=== PATIENT | male | born 1930 | race Caucasian/White ===

== ENCOUNTER 2017-01-11 12:37 | Observation (INO) ==
[2017-01-11] MEDS ORDERED: *HR* HYDROmorphone (PF) 1 MG/ML SYRINGE IM ONE (12:42)
--- NOTE | 2017-01-11 12:46 | Emergency Department Note ---
START Narrative - START START: I examined this patient and my medical decision-making was reviewed with the PUBLIC HEALTH ADVISOR/PA/Advanced Practice Nurse/Resident Physician. I agree with the documented findings, disposition and treatment plan as described except to the extent set forth below. ED attending: Patient's emergency medicine resident Dr. Mcgarry. Please see copy of this note for H&P evaluation and management and ED disposition. We both had independent [id number] time contact with this patient. Briefly: A 86-year-old male right-hand dominant mechanical fall onto right shoulder with pain but no external deformity. Neurovascularly intact. X-rays pending. Disposition pending.
--- NOTE | 2017-01-11 13:28 | Emergency Department Note ---
Disposition Clinical Impression: Dizziness Shoulder injury Qualifiers: Encounter type: initial encounter Laterality: right Qualified Code(s): S49.91XA - Unspecified injury of right shoulder and upper arm, initial encounter Syncope Qualifiers: Syncope type: unspecified Qualified Code(s): R55 - Syncope and collapse Disposition: Admitted As Inpatient Condition: Good Reasons to Return/Additional Instructions: As we discussed, please follow up with your primary care physician at the next available appointment. Return to the emergency department immediately for any new, worsening, or persistent symptoms or any other concern you may have. Please call the orthopedic office upon discharge to set up your follow-up appointment Forms: ED Satisfaction Letter Time of Disposition: 15:37 Fall HPI - General Chief Complaint: ED Fall Stated Complaint: Fall, right shoulder injury Time Seen by Provider: 01/11/17 12:40 Source: patient, family, EMS Mode of arrival: EMS Limitations: no limitations Nursing Notes Reviewed: Yes Vital Signs Reviewed: Yes - History of Present Illness HPI Narrative: Patient presenting to the ED via EMS after a fall with a right shoulder injury. EMS reports the patient has had issues with falling recently, unknown if he had any syncopal episodes. Only complaining of right shoulder pain. No other injuries - Related Data Home Medications Medication Instructions Recorded Confirmed Aspirin 81 mg PO DAILY 06/09/16 01/11/17 Famotidine [Pepcid] 40 mg PO HS 06/09/16 01/11/17 Fenofibrate Nanocrystallized 145 mg PO DAILY 06/09/16 01/11/17 [Tricor] Furosemide [Lasix] 20 mg PO DAILY 06/09/16 01/11/17 Metoprolol [Lopressor] 12.5 mg PO BID 06/09/16 01/11/17 Omeprazole [PriLOSEC] 40 mg PO DAILY 06/09/16 01/11/17 Potassium Chloride [K-Tab ER] 20 meq PO DAILY 06/09/16 01/11/17 Simvastatin [Zocor] 20 mg PO HS 06/09/16 01/11/17 Cetirizine HCl [Zyrtec] 10 mg PO DAILY 01/11/17 01/11/17 Sertraline [Zoloft] 50 mg PO DAILY 01/11/17 01/11/17 Allergies Allergy/AdvReac Type Severity Reaction Status Date / Time No Known Allergies Allergy Verified 01/11/17 13:06 All systems ED: reviewed and negative except as stated. Constitutional: Denies: fever Cardiovascular: Denies: palpitations Gastrointestinal: Denies: abdominal pain Musculoskeletal: Reports: as per HPI Neurological: Denies: headache Fall PMH - Past Medical History Medical history: Reports: arthritis, cardiomyopathy, coronary artery disease, hyperlipidemia, myocardial infarction Surgical history: Reports: coronary bypass (CABG), orthopedic, other Psychiatric history: Reports: no psych history - Social History Smoking Status: Current every day smoker Alcohol use: Reports: occasionally Drug use: Reports: none Physical Exam - General Limitations: no limitations General appearance: alert, in no apparent distress - Head Head exam: atraumatic, normocephalic, normal inspection - Eye Eye exam: Present: normal appearance, PERRL, EOMI - ENT ENT exam: normal exam, normal oropharynx, mucous membranes moist - Neck Neck exam: Present: normal inspection, full ROM, trachea midline - Chest Chest inspection: Present: normal inspection, symmetric chest wall rise - Respiratory Respiratory exam: Present: normal lung sounds bilaterally - Cardiovascular Cardiovascular exam: Present: regular rate, normal rhythm, normal heart sounds - Abdominal Exam Abdominal exam: Present: soft, Non-Tender. Absent: tenderness, distention, guarding, rebound, rigidity - Extremities Exam Extremities exam: Present: other (Right AC joint pain and distal clavicular pain , decreased range of motion secondary to pain of the shoulder, normal neurovascular exam distally, normal range of motion of elbow and wrist. Normal obstetrics gynecology md strength. No scapular C-spine, thoracic or chest wall tenderness) Course Course Narrative: A 6-year-old male presenting with right shoulder pain. EMS describes a mechanical fall. Patient in no acute distress. We will get an x-ray and likely discharge - Reevaluation(s) Reevaluation #1: After discussion with the patient. There is no identifiable fracture. Could be related to adhesive capsulitis. Patient's daughter is now present and states that these falls actually have been related to syncope and not mechanical falls. He has been getting dizzy and falling much more frequently than usual. He has never had a formal workup for his dizziness, although EMS had reported previously that he did. He has never had a carotid ultrasound and has not had a recent echocardiogram. Patient does live at home alone and daughter is over an hour away. She is concerned that he will fall and injure himself and is unable to take care of himself fully. Therefore, we will check some basic labs and a chest x-ray, EKG , CT of his head and admit for further syncope and dizziness workup. No acute neurological deficits Time: 13:40 Reevaluation #2: Sinus bradycardia, rate 56, ND interval 165, QRS 95, QTC 395, left axis deviation, no acute ischemic changes Time: 14:42 - Consultations Consultation #1: admitted to the hospitalist Dr. Borges Time: 15:38 Vital Signs Temperature 99.1 F 01/11/17 13:01 Pulse Rate 56 01/11/17 13:01 Respiratory Rate 16 01/11/17 13:01 Blood Pressure 99/59 01/11/17 13:01 O2 Sat by Pulse Oximetry 94 01/11/17 13:01 Temperature 99.1 F 01/11/17 13:01 Pulse Rate 58 01/11/17 14:38 Respiratory Rate 20 01/11/17 14:38 Blood Pressure 114/69 01/11/17 14:38 O2 Sat by Pulse Oximetry 96 01/11/17 14:38 Oxygen Delivery Oxygen Delivery Room Air Fall - Lab Data Result diagrams: 01/11/17 13:58 01/11/17 13:58 Lab Results 01/11/17 01/11/17 01/11/17 Range/Units 13:58 13:58 13:58 WBC 8.9 (4.3-11.1) K/mcL RBC 4.12 L (4.19-5.50) M/mcL Hgb 12.5 L (12.9-16.9) g/dL Hct 37.5 (37.5-50.1) % MCV 91.0 (83.0-100.0) fL MCH 30.3 (28.0-33.3) pg MCHC 33.3 (31.6-35.5) g/dL RDW 12.9 (11.5-14.5) % Plt Count 217 (140-400) K/mcL MPV 10.3 (9.4-12.4) fL Immature Gran % 0.3 (0-4) % Seg Neutrophils % 61.7 % Lymphocytes % 24.5 % Monocytes % 9.5 % Eosinophils % 3.4 % Basophils % 0.6 % Neutrophils # 5.5 (1.6-8.9) K/mcL Lymphocytes # 2.2 (0.6-4.6) K/mcL Monocytes # 0.8 (0.0-1.3) K/mcL Eosinophils # 0.3 (0.0-0.6) K/mcL Basophils # 0.1 (0.0-0.2) K/mcL PT 11.3 (9.4-12.1) Seconds INR 1.1 APTT 30.6 (26.0-36.0) Seconds Sodium 139 (136-145) mEq/L Potassium 4.4 (3.5-4.5) mEq/L Chloride 107 (98-109) mEq/L Carbon Dioxide 24 (19-29) mEq/L BUN 27 H (8-26) mg/dL Creatinine 1.41 H (0.72-1.25) mg/dL Est GFR ( Amer) 58 L (> 60) Est GFR (Non-Af Amer) 48 L (> 60) BUN/Creatinine Ratio 19 (6-26) Glucose 94 (70-99) mg/dL Calculated Osmolality 293 (280-300) Calcium 9.9 (8.6-10.8) mg/dL Creatine Kinase 47 (30-200) Units/L Troponin I (0-0.03) ng/mL 01/11/17 Range/Units 13:58 WBC (4.3-11.1) K/mcL RBC (4.19-5.50) M/mcL Hgb (12.9-16.9) g/dL Hct (37.5-50.1) % MCV (83.0-100.0) fL MCH (28.0-33.3) pg MCHC (31.6-35.5) g/dL RDW (11.5-14.5) % Plt Count (140-400) K/mcL MPV (9.4-12.4) fL Immature Gran % (0-4) % Seg Neutrophils % % Lymphocytes % % Monocytes % % Eosinophils % % Basophils % % Neutrophils # (1.6-8.9) K/mcL Lymphocytes # (0.6-4.6) K/mcL Monocytes # (0.0-1.3) K/mcL Eosinophils # (0.0-0.6) K/mcL Basophils # (0.0-0.2) K/mcL PT (9.4-12.1) Seconds INR APTT (26.0-36.0) Seconds Sodium (136-145) mEq/L Potassium (3.5-4.5) mEq/L Chloride (98-109) mEq/L Carbon Dioxide (19-29) mEq/L BUN (8-26) mg/dL Creatinine (0.72-1.25) mg/dL Est GFR ( Amer) (> 60) Est GFR (Non-Af Amer) (> 60) BUN/Creatinine Ratio (6-26) Glucose (70-99) mg/dL Calculated Osmolality (280-300) Calcium (8.6-10.8) mg/dL Creatine Kinase (30-200) Units/L Troponin I 0.02 (0-0.03) ng/mL
[2017-01-11 14:08] LABS: INR 1.1; Prothrombin Time 11.3 Seconds (9.4-12.1)
[2017-01-11 14:11] LABS: Activated Partial Thrombo Time 30.6 Seconds (26.0-36.0); Basophils # 0.1 K/mcL (0.0-0.2); Basophils % 0.6 %; Eosinophils # 0.3 K/mcL (0.0-0.6); Eosinophils % 3.4 %; Hematocrit 37.5 % (37.5-50.1); Hemoglobin 12.5 g/dL (12.9-16.9); Immature Granulocytes % 0.3 % (0-4); Lymphocytes # 2.2 K/mcL (0.6-4.6); Lymphocytes % 24.5 %; Mean Corpuscular HGB Conc 33.3 g/dL (31.6-35.5); Mean Corpuscular Hemoglobin 30.3 pg (28.0-33.3); Mean Platelet Volume 10.3 fL (9.4-12.4); Monocytes # 0.8 K/mcL (0.0-1.3); Monocytes % 9.5 %; Neutrophils # 5.5 K/mcL (1.6-8.9); Platelet Count 217 K/mcL (140-400); Red Blood Count 4.12 M/mcL (4.19-5.50); Red Cell Distribution Width 12.9 % (11.5-14.5); Segmented Neutrophils % 61.7 %
[2017-01-11 14:20] LABS: Calcium 9.9 mg/dL (8.6-10.8); Potassium 4.4 mEq/L (3.5-4.5)
[2017-01-11 15:48] LABS: Bilirubin,Urine Negative (Negative); Blood,Urine Negative (Negative); Clarity,Urine Clear (Clear); Color,Urine Yellow (Yellow); Glucose,Urine (UA) Normal (Normal); Ketones,Urine Negative (Negative); Leukocyte Esterase,Urine Negative (Negative); Nitrite,Urine Negative (Negative); Protein,Urine Negative (Neg-Trace); Specific Gravity,Urine 1.017 (1.010-1.025); Urobilinogen,Urine Normal (Normal)
[2017-01-11] MEDS ORDERED: Naloxone 0.4 MG/ML INJ IVP PRN (16:42)
[2017-01-11] MEDS ORDERED: Acetaminophen 325 MG TABLET PO PRN (16:42)
[2017-01-11] MEDS ORDERED: Ondansetron ODT 4 MG TAB.RAPDIS SL PRN (16:42)
--- NOTE | 2017-01-11 17:00 | Internal Med History&Physical ---
<Soto Bueno - Last Filed: 01/11/17 16:56> Date of Encounter: 01/11/17 Time of Encounter: 16:56 Assessment and Plan (1) Syncope Current visit: Yes Status: Acute 86-year-old male significant cardiovascular history as demonstrated syncopal episodes over the last month with increasing frequency in the last week. - Denies postictal symptoms including biting tongue, loss of control of bowels and bladder, difficulty to arouse. - Symptoms appear to be cardiogenic in nature given the acute onset and recovery. - EKG reviewed which demonstrated sinus bradycardia with left axis deviation Plan: - Carotid duplex Doppler bilateral - TTE - Reviewed medications - Continuous cardiac monitoring - Cardiac enzymes - Orthostatic vitals Qualifiers: Syncope type: unspecified Qualified Code(s): R55 - Syncope and collapse (2) Coronary artery disease Current visit: Yes Status: Acute Significant history of coronary artery disease with previous CABG (5 vessels ) in the - Review of patient's outpatient cardiology notes demonstrates that his last echocardiogram ejection fraction of 50%. - No recent echocardiogram in the past several years. Plan: - Continue simvastatin - Continue fenofibrate Qualifiers: Qualified Code(s): I25.10 - Atherosclerotic heart disease of [place] coronary artery without angina pectoris (3) Hx of CABG Current visit: Yes Status: Acute Known history. (4) Shoulder injury Current visit: Yes Status: Acute Complains of right lateral shoulder pain after a fall this morning. X-ray: Moderate acromioclavicular degenerative changes and mild glenohumeral degenerative changes. No superimposed acute radiographic finding to account for patient's right shoulder pain. Plan: - pain control - Physical therapy. Qualifiers: Encounter type: initial encounter Laterality: right Qualified Code(s): S49.91XA - Unspecified injury of right shoulder and upper arm, initial encounter (5) CKD (chronic kidney disease) stage 3, GFR 30-59 ml/min Current visit: Yes Status: Acute Review of patient's previous lab results demonstrate chronic kidney disease stage III. - Current creatinine and GFR appeared to be around baseline. Plan: - Avoid nephrotoxic medications and renally dose antibiotics - Monitor renal function daily labs (6) DVT prophylaxis Current visit: Yes Status: Acute Lovenox 40mg daily Internal Medicine - H&P: HPI Chief complaint: right shoulder pain Admitted From: Emergency Dept Plans for Post Hospital Care: Home History of present illness: Mr. Kinsey is a 86 year old male presented to the emergency department this evening after falling at home and landing on his right shoulder. He states that he was getting up to use the bathroom at 3 AM this morning he was walking across his bedroom when he started to fall. He does not remember the events around his falling episode but does not remember why he fell and denies feeling like his legs were giving out or feeling weak. He said he may have blacked out but came to prior to hitting the ground and landed on his right shoulder. He states that he is fallen twice in the last week with very similar presentation and his family member who is at bedside states that he has fallen multiple times last month. He has passed out spontaneously while doing activities while at rest or while standing. He denies any feeling of lightheadedness or dizziness prior to falling he just says the lights go out any falls. When he comes to me comes back right away but does feel dizzy and lightheaded for a short period of time after. He denies biting his tongue, hitting his head, losing bowel or bladder function or having abnormal coordination or movements with his extremities. He denies any recent illnesses fevers chills sweating blurry vision shortness of breath, vertigo, chest pain, palpitations, chest pressure, abdominal pains, nausea vomiting diarrhea constipation, weakness in his extremities, blood in his urine and bowels, sputum. He does mention that he follows with his pole setter and recently cut his blood pressure medication in half roughly a month ago because of blood pressure was low. He has a book of medical problems that he has at bedside and shows his blood pressure is systolically around 116. He denies any chest pains or any other concerns. Past Med Surg Social Fam HX - Past Medical History Medical history: arthritis, cardiomyopathy, coronary artery disease, hyperlipidemia, myocardial infarction Psychiatric history: no psych history - Past Surgical History Surgical History: coronary bypass (CABG), orthopedic, other - Social History Smoking Status: Current every day smoker Smokeless Tobacco Status: No Alcohol use: occasionally Drug use: none Internal Medicine - H&P: Meds Aspirin 81 mg PO DAILY 06/09/16 [History] Famotidine [Pepcid] 40 mg PO HS 06/09/16 [History] Fenofibrate Nanocrystallized [Tricor] 145 mg PO DAILY 06/09/16 [History] Furosemide [Lasix] 20 mg PO DAILY 06/09/16 [History] Metoprolol [Lopressor] 12.5 mg PO BID 06/09/16 [History] Omeprazole [PriLOSEC] 40 mg PO DAILY 06/09/16 [History] Potassium Chloride [K-Tab ER] 20 meq PO DAILY 06/09/16 [History] Simvastatin [Zocor] 20 mg PO HS 06/09/16 [History] Cetirizine HCl [Zyrtec] 10 mg PO DAILY 01/11/17 [History] Sertraline [Zoloft] 50 mg PO DAILY 01/11/17 [History] 3 Allergy/AdvReac Type Severity Reaction Status Date / Time No Known Allergies Allergy Verified 01/11/17 13:06 All Systems PM: A 10-system review of systems was performed and is negative for pertinent findings except as documented above in the HPI. - Constitutional Constitutional: no chills, no fever(s), no night sweats - EENT Eyes: no change in vision, no discharge, no pain, no photophobia Ears: no ear discharge, no ear pain, no tinnitus Nose, mouth and throat: no dysphagia, no nasal discharge, no neck pain, no sore throat - Cardiovascular Cardiovascular ROS IM: lightheadedness, no chest pain, no diaphoresis, no dyspnea, no palpitations, no syncope - Respiratory Respiratory: no cough, no dyspnea, no wheezing, no excessive phlegm production - Gastrointestinal Gastrointestinal: no abdominal pain, no diarrhea, no hematemesis, no hematochezia, no melena, no nausea, no vomiting - Musculoskeletal Musculoskeletal ROS IM: no numbness, no tingling - Integumentary Integumentary IM: no rash, no unusual bruising - Neurological Neurological ROS: dizziness, no confusion, no convulsions, no focal weakness, no numbness, no tingling, no tremor(s) Additional comments: Syncope, near syncope - Hematologic/Lymphatic Hematologic/Lymphatic: no easy bruising - Constitutional Vitals: Temp Pulse Resp BP Pulse Ox 99.1 F 58 18 119/74 96 01/11/17 13:01 01/11/17 14:38 01/11/17 16:45 01/11/17 16:45 01/11/17 14:38 Exam: General: Patient alert, awake, oriented 3, interactive, in no acute distress HEENT: Normocephalic, atraumatic, pupils equal reactive to light, nasal cavity patent and open septum median position, oral mucosa moist, uvula midline, neck supple trachea midline no palpable lymphadenopathy, no thyromegaly. Chest: Symmetric bilateral correlating with respiratory effort, effort nonlabored. Cardiac: Regular rate and rhythm, positive S1, S2, no bruits appreciated bilateral carotids, Radial pulses 2+ bilateral, posterior tibial and dorsal pedal pulses 2+ bilateral. Respiratory: Clear to auscultation all lung snider Abdomen: Soft, nontender, positive bowel sounds, no palpable masses appreciated on examination Extremities: Symmetric bilateral, no erythema or edema, tenderness to palpation of the lateral humeral head, patient is moving all other extremities without restriction. Patient is neurovascularly intact. Neurologic: No focal deficits appreciated on examination. Face symmetric, muscle strength symmetric bilateral upper and lower extremities. Internal Med - H&P Results - Labs CBC & Chem 7: 01/11/17 13:58 01/11/17 13:58 <Aide Borges - Last Filed: 01/11/17 18:36> Date of Encounter: 01/11/17 Internal Medicine - H&P: HPI History of present illness: Mr. Kinsey is a 86 year old male All Systems PM: A 10-system review of systems was performed and is negative for pertinent findings except as documented above in the HPI. - Constitutional Vitals: Temp Pulse Resp BP Pulse Ox 97.8 F 61 16 118/72 97 01/11/17 17:55 01/11/17 17:55 01/11/17 17:55 01/11/17 17:55 01/11/17 17:55 Internal Med - H&P Results - Labs CBC & Chem 7: 01/11/17 13:58 01/11/17 13:58 - Attending Attestation Patient independently seen and examined with family present at bedside. Admitted for recurrent syncopal episodes. Pt is reported of living alone. will rule out cardiogenic causes. case discussed with resident physician Dr. Soto Viveros, I agree with his documented findings, assessment, and plan.
[2017-01-11] MEDS ORDERED: *HR* HYDROcodone/Acet 5/325 mg TABLET PO PRN (17:39)
[2017-01-11] MEDS: Famotidine 20 MG TABLET PO SCH (20:20)
[2017-01-12] MEDS: *HR* Enoxaparin 40 MG/0.4 ML SYRINGE SQ SCH (05:35)
[2017-01-12 07:02] LABS: Basophils # 0.1 K/mcL (0.0-0.2); Basophils % 0.8 %; Eosinophils # 0.3 K/mcL (0.0-0.6); Eosinophils % 4.2 %; Hematocrit 38.4 % (37.5-50.1); Hemoglobin 12.8 g/dL (12.9-16.9); Immature Granulocytes % 0.3 % (0-4); Lymphocytes # 2.1 K/mcL (0.6-4.6); Lymphocytes % 29.7 %; Mean Corpuscular HGB Conc 33.3 g/dL (31.6-35.5); Mean Corpuscular Hemoglobin 30.4 pg (28.0-33.3); Mean Corpuscular Volume 91.2 fL (83.0-100.0); Mean Platelet Volume 11.1 fL (9.4-12.4); Monocytes # 0.8 K/mcL (0.0-1.3); Monocytes % 10.9 %; Neutrophils # 3.8 K/mcL (1.6-8.9); Platelet Count 200 K/mcL (140-400); Red Blood Count 4.21 M/mcL (4.19-5.50); Segmented Neutrophils % 54.1 %
[2017-01-12 07:16] LABS: BUN/Creatinine Ratio 19 (6-26); Blood Urea Nitrogen 23 mg/dL (8-26); Calcium 9.9 mg/dL (8.6-10.8); Carbon Dioxide 25 mEq/L (19-29); Chloride 107 mEq/L (98-109); Chol/HDL Ratio 4.3 (0-4.9); Cholesterol 117 mg/dL (< 200); Glucose 92 mg/dL (70-99); HDL Cholesterol 27 mg/dL (40-59); LDL Cholesterol,Calculated 69 mg/dL (0-99); Magnesium 1.9 mg/dL (1.6-2.6); Osmolality,Calculated 293 (280-300); Phosphorous 3.2 mg/dL (2.3-4.7); Potassium 4.1 mEq/L (3.5-4.5); Sodium 140 mEq/L (136-145); Triglycerides 104 mg/dL (< 150); eGFR For African Americans > 60 (> 60); eGFR For Non-African Americans 56 (> 60)
[2017-01-12] MEDS: Fenofibrate 54 MG TABLET PO SCH (08:26)
[2017-01-12] MEDS: Aspirin 81 MG TAB.CHEW PO SCH (08:26)
--- NOTE | 2017-01-12 17:01 | Electrocardiograph Report ---
[place] [id number] Test Date: 2017-01-11 Pat Name: Mundo Kinsey Department: 102 Room: 3B Gender: M Appellate Conferee: PERLA : 1930 Requested By: Natan Mcgarry Order Number: [id number] Reading MD: Marybel Ayoub Measurements Intervals [place] Rate: 56 P: 24 MS: 165 QRS: -9 QRSD: 95 T: 39 QT: 393 QTc: 385 Interpretive Statements SINUS BRADYCARDIA MINIMAL VOLTAGE CRITERIA FOR LVH, CONSIDER NORMAL VARIANT NONSPECIFIC T-WAVE ABNORMALITY Electronically Signed On 01-12-2017 17:00:14 EDT by Marybel Ayoub
--- NOTE | 2017-01-12 19:27 | Internal Med Progress Note ---
Date of Encounter: 01/12/17 Time of Encounter: 14:00 - Assessment and plan (1) Syncope Current Visit: Yes Status: Acute Assessment and plan: Patient reports syncopal episodes at home with fall. Patient is bradycardic throughout visit. Carotids with nonstenotic plaque bilaterally. Echocardiogram with heart rate of 50, LVEF of 50%, mild LVEDD, atypical septal motion consistent with postoperative status, no significant valvular dysfunction. Patient had positive orthostatic vital signs. Patient does not check his blood pressure prior to taking his medications, daughter at bedside suggested this for discharge. I decreased his beta vasu to 6.25 mg by mouth twice a day. We will continue to monitor vital signs and pulse in the morning. Qualifiers: Syncope type: unspecified Qualified Code(s): R55 - Syncope and collapse (2) Shoulder injury Current Visit: Yes Status: Acute Assessment and plan: Patient with right shoulder pain. No obvious deformity. Patient with pain with range of motion. Sling ordered. Physical therapy consult ordered, as well. Qualifiers: Encounter type: initial encounter Laterality: right Qualified Code(s): S49.91XA - Unspecified injury of right shoulder and upper arm, initial encounter (3) Dizziness Current Visit: Yes Status: Acute Assessment and plan: Plan as above (4) Coronary artery disease Current Visit: Yes Status: Chronic Assessment and plan: Patient denies chest pain. Patient had CABG in the . Patient's last echo with ejection fraction of 50%, unchanged today. Continue fenofibrate and simvastatin, as well as beta vasu with reduced dose for bradycardia and hypotension. Qualifiers: Coronary Disease-Associated Artery/Lesion type: [place] artery [place] vs. transplanted heart: [place] heart Associated angina: angina presence unspecified Qualified Code(s): I25.10 - Atherosclerotic heart disease of [place] coronary artery without angina pectoris (5) Hx of CABG Current Visit: Yes Status: Chronic Assessment and plan: Plan as above. (6) DVT prophylaxis Current Visit: Yes Status: Acute Assessment and plan: Lovenox subcutaneous. (7) CKD (chronic kidney disease) stage 3, GFR 30-59 ml/min Current Visit: Yes Status: Acute Assessment and plan: GFR 56, serum creatinine 1.23. Continue to avoid nephrotoxins and NSAIDs. Continue to monitor his labs. - Time Spent With Patient less than 15 minutes - Subjective Interval history: Patient was seen and assessed 1400 today. He states he feels fine and wants to go home. He reports right shoulder pain status post fall at home. Shoulder x- ray in the emergency department was negative, there are chronic degenerative changes. - Constitutional Vitals: Temp Pulse Resp BP Pulse Ox 98.0 F 58 16 106/66 95 01/12/17 15:06 01/12/17 15:06 01/12/17 15:06 01/12/17 15:06 01/12/17 15:06 General appearance: Present: cooperative, A&O X 3, pleasant, no acute distress, answers questions appropriately - Head Head exam: Present: atraumatic, normal inspection, normocephalic - Eye Eye exam: Present: normal appearance, conjuntiva pink Pupils: Present: PERRL - ENT ENT exam: Present: mucous membranes moist, normal exam, normal external ear exam - Neck Neck exam general surgery: Present: supple, trachea midline. Absent: lymphadenopathy - Respiratory Respiratory exam: Present: CTAB. Absent: accessory muscle use, rales, rhonchi, wheezes - Cardiovascular Cardiovascular exam: Present: RRR, +S1, +S2. Absent: diastolic murmur, gallop, rubs, systolic murmur - GI/Abdominal GI/Abdominal exam: Present: normal bowel sounds, soft, no peritoneal signs. Absent: distended, tenderness - Extremities Exam Extremities exam: Present: warm, radial pulses palpable and symmetrical. Absent : calf tenderness, cyanotic, pedal edema - Expanded Upper Extremities Exam General: Present: normal inspection Upper Arm exam: Present: tenderness. Absent: full ROM, swelling - Neurological Exam Neurological exam: Present: CN II-XII intact, oriented X3, no focal deficits. Absent: pronater drift, facial droop, speech deficit - Skin Skin exam: Present: dry, intact Internal Medicine: Result - Labs CBC & Chem 7: 01/12/17 06:14 01/12/17 06:14 Labs: Short CBC 01/12/17 Range/Units 06:14 WBC 7.1 (4.3-11.1) K/mcL Hgb 12.8 L (12.9-16.9) g/dL Hct 38.4 (37.5-50.1) % Plt Count 200 (140-400) K/mcL Neutrophils # 3.8 (1.6-8.9) K/mcL BMP 01/12/17 06:14 Sodium 140 Potassium 4.1 Chloride 107 Carbon Dioxide 25 BUN 23 Creatinine 1.23 Glucose 92 Calcium 9.9 Cardiac Enzymes 01/12/17 Range/Units 06:14 Troponin I 0.01 (0-0.03) ng/mL - ABG Interpretation ABG results: PT/INR, D-dimer PT 11.3 Seconds (9.4-12.1) 01/11/17 13:58 Consult Discharge Plan - Plan Referrals: Gabriel Ureña DO [Primary Care Provider] -
[2017-01-12] MEDS: Famotidine 20 MG TABLET PO SCH (22:23)
[2017-01-13] MEDS: *HR* Enoxaparin 40 MG/0.4 ML SYRINGE SQ SCH (05:57)
--- NOTE | 2017-01-13 07:18 | Carotid Imaging Report ---
Carotid Duplex Patient Name:Mundo Kinsey Order Number:[id number] Procedure Date:01/12/2017 Date:1930ge:86 yrs Gender:Male Height: cm / inWeight:71.67 kg / 158.00 lb Location:[facility] Room #: [facility] Logging Specialist:Arcadio Rodriguez, DIRK Referring MD:Soto Bueno DO facility assistant:Sharif Ureña DO Reading MD:Mundo Boss MD Primary Indications:Syncope Risk Factors Yes/No Hypertension Yes Hypercholesterolemia Yes Smoking Current Yes Impressions: The bilateral carotid arteries have minimal plaque throughout. Recommendations: After imaging the patient returned to their room. Findings Carotid Duplex: Right: The right proximal common carotid artery has a PSV of 89 cm/s and a EDV of 19 cm/s. The right mid common carotid artery has a PSV of 94 cm/s and a EDV of 21 cm/s. The right distal common carotid artery has a PSV of 94 cm/s and a EDV of 24 cm/s. There is nonstenotic plaque in the right bifurcation with a PSV of 85 cm/s and a EDV of 22 cm/s. There is calcified plaque. There is nonstenotic plaque in the right proximal internal carotid artery with a PSV of 92 cm/s and a EDV of 29 cm/s. There is smooth heterogeneous plaque. The right mid internal carotid artery has a PSV of 84 cm/s and a EDV of 25 cm/s. The right distal internal carotid artery has a PSV of 120 cm/s and a EDV of 35 cm/s. The right eca has a PSV of 99 cm/s and a EDV of 8 cm/s. The right vertebral artery has a PSV of 35 cm/s and a EDV of 7 cm/s. Left: The left proximal common carotid artery has a PSV of 115 cm/s and a EDV of 20 cm/s. The left mid common carotid artery has a PSV of 121 cm/s and a EDV of 25 cm/s. The left distal common carotid artery has a PSV of 109 cm/s and a EDV of 20 cm/s. There is nonstenotic plaque in the left bifurcation with a PSV of 73 cm/s and a EDV of 17 cm/s. There is smooth, heterogeneous calcified plaque. There is nonstenotic plaque in the left proximal internal carotid artery with a PSV of 99 cm/s and a EDV of 15 cm/s. There is smooth heterogeneous plaque. The left mid internal carotid artery has a PSV of 67 cm/s and a EDV of 21 cm/s. The left distal internal carotid artery has a PSV of 85 cm/s and a EDV of 26 cm/s. The left eca has a PSV of 98 cm/s and a EDV of 9 cm/s. The left vertebral artery has a PSV of 40 cm/s and a EDV of 11 cm/s. Prior Study: No prior study available for comparison. Carotid Results Right PSV EDV Assessment Proximal CCA 89 19 Normal Mid CCA 94 21 Normal Distal CCA 94 24 Normal Bifurcation 85 22 Non Stenotic Plaque Proximal ICA 92 29 Non Stenotic Plaque Mid ICA 84 25 Normal Distal ICA 120 35 Normal ECA 99 8 Normal Vertebral Artery 35 7 Normal Left PSV EDV Assessment Proximal CCA 115 20 Normal Mid CCA 121 25 Normal Distal CCA 109 20 Normal Bifurcation 73 17 Non Stenotic Plaque Proximal ICA 99 15 Non Stenotic Plaque Mid ICA 67 21 Normal Distal ICA 85 26 Normal ECA 98 9 Normal Vertebral Artery 40 11 Normal Ratio's Right ICA/CCA Ratio: 1.28 ICA/CCA Values: 120/94 Left ICA/CCA Ratio: 0.81 ICA/CCA Values: 99/121 Updated by Mundo Boss MD on 01/13/2017 7:12:37 AM electronically signed on 01/13/2017 7:13:03 AM with status of Final
[2017-01-13] MEDS: Aspirin 81 MG TAB.CHEW PO SCH (08:10)
[2017-01-13] MEDS: Fenofibrate 54 MG TABLET PO SCH (08:11)
[2017-01-13 15:21] VITALS: BP 119/66
--- NOTE | 2017-01-13 15:58 | Physician Discharge Referral ---
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 For more information, call the [place] Tobacco Quit Line at 8-036-IFDE-NOW. - Diet/Nutrition Diet/Nutrition Orders: Regular - Activity Activity Orders: Up ad chioma - Services Needed Following services are medically necessary services: Nursing, Home Health Aide, Physical Therapy, Occupational Therapy - Transfer Medications Home Medications: Aspirin 81 mg PO DAILY 06/09/16 [History] Famotidine [Pepcid] 40 mg PO HS 06/09/16 [History] Fenofibrate Nanocrystallized [Tricor] 145 mg PO DAILY 06/09/16 [History] Furosemide [Lasix] 20 mg PO DAILY 06/09/16 [History] Metoprolol [Lopressor] 12.5 mg PO BID 06/09/16 [History] Omeprazole [PriLOSEC] 40 mg PO DAILY 06/09/16 [History] Potassium Chloride [K-Tab ER] 20 meq PO DAILY 06/09/16 [History] Simvastatin [Zocor] 20 mg PO HS 06/09/16 [History] Cetirizine HCl [Zyrtec] 10 mg PO DAILY 01/11/17 [History] Sertraline [Zoloft] 50 mg PO DAILY 01/11/17 [History] Allergies/Adverse Reactions: 3 Allergy/AdvReac Type Severity Reaction Status Date / Time No Known Allergies Allergy Verified 01/11/17 13:06 Certification: Further, I certify that my clinical findings support that this patient is homebound (i.e. absences from home require considerable and taxing effort and are for medical reasons or scientologist services or infrequently or short duration when for other reasons) because: Homebound Reason: Patient requires assistance of a person or device to safely leave home Attestation: My signature below is to certify that this patient is under my care and that I, or nurse practitioner, or a physician's seed analysis laboratory assistant working with me, has a face-to -face encounter with this patient.
--- NOTE | 2017-01-13 16:01 | Discharge Summary ---
Date of Encounter: 01/13/17 Time of Encounter: 09:35 - Discharge Diagnosis (1) Syncope Priority: Primary Status: Acute Comments: Pt has had no syncopal events here. He has been bradycardic throughout visit, Metoprolol has been decreased to 6.25mg po bid and pt is tolerating it well. Will continue at home. BP is WNL. Qualifiers: Syncope type: unspecified Qualified Code(s): R55 - Syncope and collapse (2) Shoulder injury Priority: Secondary Status: Acute Comments: Due to fall. Pt is wearing a sling and will have PT evaluation at home with home health. Qualifiers: Encounter type: initial encounter Laterality: right Qualified Code(s): S49.91XA - Unspecified injury of right shoulder and upper arm, initial encounter (3) Dizziness Priority: Secondary Status: Resolved Comments: Pt denies dizziness. Plan as above. Most likely due to orthostatic hypotension and/or bradycardia. Resolved. (4) Coronary artery disease Priority: Secondary Status: Chronic Comments: Patient denies chest pain. Patient had CABG in the . Patient's last echo with ejection fraction of 50%, unchanged today. Continue fenofibrate and simvastatin, as well as beta vasu with reduced dose for bradycardia and hypotension. Qualifiers: Coronary Disease-Associated Artery/Lesion type: [place] artery [place] vs. 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 (6) DVT prophylaxis Priority: Secondary Status: Acute Comments: SQ Lovenox. (7) CKD (chronic kidney disease) stage 3, GFR 30-59 ml/min Priority: Secondary Status: Acute Comments: Sr cr 1.23, GFR 56. Avoid nephrotoxins. Follow up with PCP. - Discharge Medications Prescriptions: Metoprolol [Lopressor] 6.25 mg PO BID #15 tab Home Medications: Aspirin 81 mg PO DAILY 06/09/16 [History] Famotidine [Pepcid] 40 mg PO HS 06/09/16 [History] Fenofibrate Nanocrystallized [Tricor] 145 mg PO DAILY 06/09/16 [History] Furosemide [Lasix] 20 mg PO DAILY 06/09/16 [History] Omeprazole [PriLOSEC] 40 mg PO DAILY 06/09/16 [History] Potassium Chloride [K-Tab ER] 20 meq PO DAILY 06/09/16 [History] Simvastatin [Zocor] 20 mg PO HS 06/09/16 [History] Cetirizine HCl [Zyrtec] 10 mg PO DAILY 01/11/17 [History] Metoprolol [Lopressor] 6.25 mg PO BID #15 tab 01/13/17 [Rx] Sertraline [Zoloft] 50 mg PO DAILY tab 01/13/17 [Rx] Allergies/Adverse Reactions: 3 Allergy/AdvReac Type Severity Reaction Status Date / Time No Known Allergies Allergy Verified 01/11/17 13:06 Procedures/tests Complete & Pending: Procedures Performed prior 72 hours Category Date Time Status EV carotid duplex imaging BI Stat Y 01/12/17 16:46 Completed EV echocardiogram Stat Y 01/12/17 16:46 Completed Date of admission: 01/11/17 15:48 Primary care physician: Gabriel Ureña, Consults: 01/11/17 18:31 Consult to Thermal Cutting Machine Operator [CONS] Routine Reason for SW Consult: possible home health? 01/13/17 07:24 Consult to Physical Therapy [CONS] Routine Comment: Evaluate, develop and implement POC Reason for Consult: eval Discharging clinician: Tamiko Ross Anticipated date of discharge: 01/13/17 - Patient Status Disposition: Home Health Service Condition: Good Functional capacity at discharge: uses cane/walker Overall status at discharge: patient is progressing back to baseline - Discharge Instructions Instructions: Metoprolol (By mouth), Syncope (DC), Syncope (GEN), How to Take a Blood Pressure (DC), How to Take a Blood Pressure (GEN), Hypotension (DC), Hypotension (GEN) Follow Up With: Gabriel Ureña DO [Primary Care Provider] - 01/21/17 9:30 am Kvng Damico MD [Partnered Physician] - 01/28/17 9:00 am Additional Instructions: Follow-up primary care provider as scheduled. Continue your normal home medications, with the exception of the metoprolol which she will take one quarter tablet twice daily Return to the emergency department if you have any other problems or concerns, change or worsening condition Resume your normal activities as tolerated. - Diet and Activity Activity: ambulate only with your walker, as per physical therapy, resume usual activities as tolerated Diet: advance to your usual diet Hospital course: Mr. Kinsey is a 86 year old male with past medical history stage III chronic kidney disease, coronary artery disease, and CABG. Patient presented to the emergency department status post fall at home, landing on his right shoulder. States that he was getting up to use the bathroom at 300, he was walking across his bedroom floor when he started to fall. He does not remember the events prior to the fall, denies feeling weak, states that he may have tripped, but was unsure. Pt reports 2 falls at home in the last week and states that he has had some syncopal episodes, as well. Carotids with nonstenotic plaque bilaterally. Echocardiogram with heart rate of 50, LVEF of 50%, mild LVEDD, atypical septal motion consistent with postoperative status, no significant valvular dysfunction.Carotids with nonstenotic plaque bilaterally. Patient had positive orthostatic vital signs. Patient does not check his blood pressure prior to taking his medications, daughter at bedside suggested this for discharge. I decreased his beta vasu to 6.25 mg by mouth twice a day. His pulse has been in the upper 60s and low 70s and blood pressure has remained WNL. Troponins were negative, chest xray negative for acute process, and pt's head CT was negative for intracranial abnormality. Pt has no visible injury to R shoulder from fall, chronic degenerative changes noted on xray. Pt has been given a sling for support and will have PT at home. He initially stated that he did not want to stay and was going to go home yesterday, but when I suggested that he would sign out AMA due to possible repeated syncope, he decided to stay, but demanded that he leave today. Pt was also resistant to home health, but his sister conviced him that he should have it for safety, pt was agreeable. Labs and vitals are WNL. Pt will continue home medications with the exception of the BB with the decreased dose. Pt will follow up with PCP as scheduled. He is ready for discharge. - Time Spent with Patient Total time spent providing and/or coordinating discharge services: Less than 30 minutes - Constitutional Vitals: Temp Pulse Resp BP Pulse Ox 98.5 F 66 16 119/66 96 01/13/17 15:20 01/13/17 15:20 01/13/17 15:20 01/13/17 15:20 01/13/17 15:20 General appearance: Present: cooperative, A&O X 3, pleasant, no acute distress, answers questions appropriately - Head Head exam: Present: atraumatic, normal inspection, normocephalic - Eye Eye exam: Present: normal appearance, conjuntiva pink - ENT ENT exam: Present: mucous membranes moist, normal exam, normal external ear exam - Neck Neck exam general surgery: Present: supple, trachea midline. Absent: lymphadenopathy, tenderness - Respiratory Respiratory exam: Present: CTAB. Absent: accessory muscle use, chest wall tenderness, rales, rhonchi, wheezes - Cardiovascular Cardiovascular exam: Present: RRR, +S1, +S2. Absent: diastolic murmur, gallop, rubs, systolic murmur - GI/Abdominal GI/Abdominal exam: Present: normal bowel sounds, soft. Absent: distended, hepatomegaly, tenderness - Extremities Exam Extremities exam: Present: normal inspection, warm, radial pulses palpable and symmetrical. Absent: calf tenderness, cyanotic, pedal edema - Expanded Upper Extremities Exam Shoulder exam: Present: tenderness Upper Arm exam: Present: tenderness. Absent: full ROM Elbow exam: Present: full ROM, normal inspection Forearm wrist exam: Present: normal inspection Hand wrist exam: Present: normal inspection - Neurological Exam Neurological exam: Present: alert, oriented X3, no focal deficits, pronater drift. Absent: facial droop, speech deficit - Skin Skin exam: Present: dry, intact, normal color, warm. Absent: rash
== END 2017-01-13 17:06 | disposition home health service (06) ==
LOC: EMEROO 12:37 → 3BNU 12:37
PROVIDERS: ADMIT Internal Medicine; ATTEND Nurse Practitioner Family

== ENCOUNTER 2018-01-31 14:45 | Observation (INO) ==
[2018-01-31] MEDS ORDERED: Metoclopramide 10 MG/2 ML VIAL IVP ONE (16:39)
[2018-01-31] MEDS ORDERED: Ketorolac 30 MG/ML VIAL IVP ONE (16:39)
[2018-01-31 16:43] LABS: Basophils % 0.7 %; Eosinophils # 0.2 K/mcL (0.0-0.6); Eosinophils % 3.3 %; Hematocrit 37.7 % (37.5-50.1); Hemoglobin 12.6 g/dL (12.9-16.9); Immature Granulocytes % 0.4 % (0-4); Lymphocytes # 1.8 K/mcL (0.6-4.6); Lymphocytes % 32.2 %; Mean Corpuscular HGB Conc 33.4 g/dL (31.6-35.5); Mean Corpuscular Hemoglobin 30.7 pg (28.0-33.3); Mean Platelet Volume 10.3 fL (9.4-12.4); Monocytes # 0.5 K/mcL (0.0-1.3); Monocytes % 9.4 %; Platelet Count 169 K/mcL (140-400); Red Cell Distribution Width 13.3 % (11.5-14.5)
--- NOTE | 2018-01-31 16:45 | Emergency Department Note ---
Disposition Clinical Impression: Lower extremity edema, Elevated brain natriuretic peptide (BNP) level Acute CHF (congestive heart failure) Qualifiers: Heart failure type: unspecified Qualified Code(s): I50.9 - Heart failure, unspecified Disposition: Admitted As Inpatient Condition: Fair Time of Disposition: 17:32 General Adult HPI - General Chief complaint: ED Extremity Problem,Nontraumatic Stated complaint: Bi-Lateral LE Edema,RODRIGUEZ Time Seen by Provider: 01/31/18 15:48 Source: patient, family Mode of arrival: ambulatory Limitations: no limitations Nursing Notes Reviewed: Yes Vital Signs Reviewed: Yes - History of Present Illness HPI Narrative: Patient is an 87-year-old male presenting with bilateral LE swelling as well as headache. Patient has past medical history significant for CHF, occipital neuralgia, CAD status post CABG, hypertension, hyperlipidemia. Patient and family are in the room. Per patient and family history progressive swelling in the bilateral lower extremities for the past month for a slightly getting worse over the past week. States that he has been having increasing shortness of breath over the past month as well, is unable to walk as far. States that his dry weight is typically around 165 and currently he is noted to be in the 170s. Denies any pain or associated redness. He denies any history of DVT or PE. He states that he was taken off his Lasix 4 months ago as he was having episodes of hypotension. This was per his director hematology. He states that he developed a headache for the past 4 days, located in the bilateral frontal region described to be throbbing that is intermittent, he denies associated nausea, vomiting, photophobia, phonophobia. He states this feels like his typical headache, however this particular headache has lasted longer than his usual headaches. Patient denies any recent falls, is not any anticoagulation medications. Pain Scale: 4 - Related Data Home Medications Medication Instructions Recorded Confirmed Aspirin 81 mg PO DAILY 06/09/16 01/31/18 Fenofibrate [Tricor] 54 mg PO DAILY 01/31/18 01/31/18 Fludrocortisone Acetate [Florinef] 0.1 mg PO DAILY 01/31/18 01/31/18 Omeprazole [PriLOSEC] 40 mg PO DAILY 01/31/18 01/31/18 Rosuvastatin Calcium [Crestor] 10 mg PO HS 01/31/18 01/31/18 Tizanidine HCl 2 mg PO DAILY PRN 01/31/18 01/31/18 Allergies Allergy/AdvReac Type Severity Reaction Status Date / Time No Known Allergies Allergy Verified 01/11/17 13:06 All systems ED: reviewed and negative except as stated. Review of Systems: As Per HPI Constitutional: Denies: fever, chills ENT ED: Denies: congestion Cardiovascular: Reports: dyspnea on exertion. Denies: chest pain, palpitations , orthopnea, edema, syncope, paroxysmal nocturnal dyspnea Respiratory: Reports: dyspnea. Denies: cough, wheezes, hemoptysis, sputum production Gastrointestinal: Denies: abdominal pain, nausea, vomiting, diarrhea, constipation Genitourinary: Denies: urgency, dysuria, frequency, hematuria Musculoskeletal: Denies: back pain, neck pain Integumentary: Denies: rash Neurological: Reports: headache ( ). Denies: weakness, numbness, paresthesias, confusion Past Medical History - Past Medical History Attestation: Yes The following information was validated with the patient. Source: patient Medical history: Reports: coronary artery disease, hyperlipidemia, myocardial infarction Surgical history: Reports: coronary bypass (CABG), orthopedic, other Psychiatric history: Reports: no psych history - Social History Smoking Status: Current every day smoker Smokeless Tobacco Status: No Alcohol use: Reports: occasionally Drug use: Reports: none Physical Exam - General Limitations: no limitations General appearance: alert - Head Head exam: atraumatic, normocephalic - Eye Eye exam: Present: normal appearance, PERRL, EOMI - ENT ENT exam: normal exam, mucous membranes moist - Neck Neck exam: Present: normal inspection - Chest Chest inspection: Present: normal inspection, symmetric chest wall rise. Absent : tenderness - Respiratory Respiratory exam: Present: other (some scattered crackles throughout the bases) . Absent: respiratory distress, wheezes - Cardiovascular Cardiovascular exam: Present: regular rate, normal rhythm - Abdominal Exam Abdominal exam: Present: soft, Non-Tender. Absent: tenderness, distention, guarding, rebound - Extremities Exam Extremities exam: Present: pedal edema (2+ BL LE pitting edema). Absent: tenderness, normal capillary refill - Expanded Lower Extremity Exam Neurovascular/Tendon exam: Present: normal capillary refill. Absent: pulse deficit, motor deficit, sensory deficit - Neurological Exam Neurological exam: Present: alert, oriented X3, CN II-XII intact. Absent: motor sensory deficit - Expanded Neurological Exam Patient oriented to: Present: person, place, time Speech: Present: fluid speech Cranial nerves: EOM function (II, III, IV, ): Normal, facial sensation (V): Normal, facial palsy (VII): Normal, gag reflex (IX): Normal, spinal accessory function (XI): Normal, tongue deviation (XII): Normal Motor strength - LUE: 4/5 Motor strength - RUE: 4/5 Motor strength - LLE: 4/5 Motor strength - RLE: 4/5 Sensory exam upper extremity: light touch: Normal Sensory exam lower extremity: light touch: Normal Coma Scale Eye Opening: Spontaneous Coma Scale Motor Response: Obeys Commands Coma Scale Verbal Response: Oriented Coma Scale Total: 15 - Psychiatric Psychiatric exam: Present: normal affect, normal mood - Skin Skin exam: Present: warm, dry, intact Course Course Narrative: Order CBC, BMP, BNP, troponin, EKG and chest x-ray. We will also give migraine cocktail for tension-type headache. - Reevaluation(s) Reevaluation #1: Upon reevaluation, patient states that headache has significantly improved. Current pain is 3 out of 10. Vital Signs Temperature 97.8 F 01/31/18 15:03 Pulse Rate 71 01/31/18 15:03 Respiratory Rate 18 01/31/18 15:03 Blood Pressure 155/83 01/31/18 15:03 O2 Sat by Pulse Oximetry 96 01/31/18 15:03 Temperature 97.8 F 01/31/18 16:16 Pulse Rate 66 01/31/18 17:15 Respiratory Rate 18 01/31/18 17:15 Blood Pressure 158/76 01/31/18 17:15 O2 Sat by Pulse Oximetry 100 01/31/18 17:15 Oxygen Delivery Oxygen Delivery Room Air Medical Decision Making - [facility] Narrative Medical decision making narrative: Patient is an 87-year-old male presenting with increasing bilateral lower swelling as well as headache. Patient has had progressive increased lobectomy swelling for the past month grossly worse over the past week with associated shortness of breath. Patient has been off his Lasix for the past 4 months per cardiology due to hypotensive episodes. Headache has been intermittent for the past 4 days. Recent MRI of the head showed multifocal ischemic changes, no acute cranial process. Patient was evaluated on arrival, vital signs are within normal limits. Physical exam reveals bilateral lower external pitting edema up to the knee. Appears to be fluid overloaded with some crackles in the lungs bilaterally at the bases. Laboratory evaluation revealed CBC which is unremarkable, BMP unremarkable. Troponin is within normal limits, EKG is normal sinus rhythm without evidence of acute ischemic changes. BNP is elevated at 343, last checked was within normal limits. Patient was given 40 mg IV Lasix. Chest x-ray shows chronic interstitial changes, not suggestive of acute infiltrate. Patient was also given headache cocktail and emergent department. Upon reevaluation, patient states that headache overall has significant increase, current pain is 3 out of 10. Patient remained stable in the emergent department, with vital signs within normal the normal limits. At this point in time, given patient's history and progressive shortness of breath and bilateral lower extremity with elevated BNP, will discuss patient with hospitalist for admission for acute CHF. Spoke with Hospitalist, Dr. Padilla at [phone] and accepts patient for admission. - Medical Records Medical records reviewed: Yes I reviewed the patient's medical records. - Lab Data Lab results reviewed: Yes I reviewed the patient's lab results. Result diagrams: 01/31/18 15:04 01/31/18 15:04 Lab Results 01/31/18 01/31/18 01/31/18 Range/Units 15:04 15:04 15:04 WBC 5.5 (4.3-11.1) K/mcL RBC 4.10 L (4.19-5.50) M/mcL Hgb 12.6 L (12.9-16.9) g/dL Hct 37.7 (37.5-50.1) % MCV 92.0 (83.0-100.0) fL MCH 30.7 (28.0-33.3) pg MCHC 33.4 (31.6-35.5) g/dL RDW 13.3 (11.5-14.5) % Plt Count 169 (140-400) K/mcL MPV 10.3 (9.4-12.4) fL Immature Gran % 0.4 (0-4) % Seg Neutrophils % 54.0 % Lymphocytes % 32.2 % Monocytes % 9.4 % Eosinophils % 3.3 % Basophils % 0.7 % Neutrophils # 3.0 (1.6-8.9) K/mcL Lymphocytes # 1.8 (0.6-4.6) K/mcL Monocytes # 0.5 (0.0-1.3) K/mcL Eosinophils # 0.2 (0.0-0.6) K/mcL Basophils # 0.0 (0.0-0.2) K/mcL Sodium 142 (136-145) mEq/L Potassium 4.2 (3.5-5.1) mEq/L Chloride 110 H (98-107) mEq/L Carbon Dioxide 29 (23-29) mEq/L BUN 18 (8-23) mg/dL Creatinine 1.21 (0.70-1.30) mg/dL Est GFR ( Amer) > 60 (> 60) Est GFR (Non-Af Amer) 57 L (> 60) BUN/Creatinine Ratio 15 (6-26) Glucose 97 (70-105) mg/dL Calculated Osmolality 296 (280-300) Calcium 9.5 (8.6-10.3) mg/dL Troponin I < 0.03 (< 0.04) ng/mL B-Natriuretic Peptide 343 H (Less than 100) pg/mL - Radiology Data Radiology results reviewed: Yes I reviewed the patient's radiology results. Chest X-Ray 01/31/18 15:04 IMPRESSION: Increased right-sided peripheral pulmonary opacity may reflect progression of chronic interstitial lung disease. Acute pneumonia is felt less likely. D/ / 01/31/2018 15:47:18 Amol Fontenot MD / Mary Villarreal Interpreting Provider: Amol Fontenot MD - EKG Data EKG #1 EKG attestation: Yes I reviewed and interpreted this EKG. EKG results narrative: EKG EKG performed at 1506 with ventricular rate of 71, regular rhythm, normal axis, nonspecific T-wave changes, no ST elevation or depression. Otherwise unremarkable EKG. When compared to previous EKG there are: previous EKG unavailable S.B.A.R. - S.B.A.R. Situation: Demographics, MOA Background: Presenting Complaint, Relevant PMH, Meds, & Allergies Assessment: Vital Signs, Course and respsone to treatment, Exam Concerns, Patient/Family Expectation, Pertinant Lab Results, Outstanding Labs Recommendation: Barrier(s) to disposition, Recommendation based on pending studies, treatments, or consults SLoreneABriana Report Given to: Hospitalist, Dr. Randy Khan Repor Time: 17:32 (Accepted)
[2018-01-31 16:55] LABS: BUN/Creatinine Ratio 15 (6-26); Blood Urea Nitrogen 18 mg/dL (8-23); Calcium 9.5 mg/dL (8.6-10.3); Carbon Dioxide 29 mEq/L (23-29); Chloride 110 mEq/L (98-107); Glucose 97 mg/dL (70-105); Osmolality,Calculated 296 (280-300); Potassium 4.2 mEq/L (3.5-5.1); Sodium 142 mEq/L (136-145); Troponin I < 0.03 ng/mL (< 0.04); eGFR For Non-African Americans 57 (> 60)
[2018-01-31] MEDS ORDERED: Furosemide 40 MG/4 ML VIAL IVP ONE (17:01)
--- NOTE | 2018-01-31 17:23 | Emergency Department Note ---
Disposition Clinical Impression: Lower extremity edema, Elevated brain natriuretic peptide (BNP) level Acute CHF (congestive heart failure) Qualifiers: Heart failure type: unspecified Qualified Code(s): I50.9 - Heart failure, unspecified Disposition: Admitted As Inpatient Condition: Fair General Adult HPI - General Chief complaint: ED Extremity Problem,Nontraumatic Stated complaint: Bi-Lateral LE Edema,RODRIGUEZ Time Seen by Provider: 01/31/18 15:48 Source: patient, family Mode of arrival: ambulatory Limitations: no limitations - History of Present Illness Pain Scale: 4 - Related Data Home Medications Medication Instructions Recorded Confirmed Aspirin 81 mg PO DAILY 06/09/16 01/31/18 Fenofibrate [Tricor] 54 mg PO DAILY 01/31/18 01/31/18 Fludrocortisone Acetate [Florinef] 0.1 mg PO DAILY 01/31/18 01/31/18 Omeprazole [PriLOSEC] 40 mg PO DAILY 01/31/18 01/31/18 Rosuvastatin Calcium [Crestor] 10 mg PO HS 01/31/18 01/31/18 Tizanidine HCl 2 mg PO DAILY PRN 01/31/18 01/31/18 Allergies Allergy/AdvReac Type Severity Reaction Status Date / Time No Known Allergies Allergy Verified 01/11/17 13:06 Constitutional: Denies: fever, chills ENT ED: Denies: congestion Cardiovascular: Reports: dyspnea on exertion. Denies: chest pain, palpitations , orthopnea, edema, syncope, paroxysmal nocturnal dyspnea Respiratory: Reports: dyspnea. Denies: cough, wheezes, hemoptysis, sputum production Gastrointestinal: Denies: abdominal pain, nausea, vomiting, diarrhea, constipation Genitourinary: Denies: urgency, dysuria, frequency, hematuria Musculoskeletal: Denies: back pain, neck pain Integumentary: Denies: rash Neurological: Reports: headache ( ). Denies: weakness, numbness, paresthesias, confusion Past Medical History - Past Medical History Medical history: Reports: coronary artery disease, hyperlipidemia, myocardial infarction Surgical history: Reports: coronary bypass (CABG), orthopedic, other Psychiatric history: Reports: no psych history - Social History Smoking Status: Current every day smoker Smokeless Tobacco Status: No Alcohol use: Reports: occasionally Drug use: Reports: none Physical Exam - General Limitations: no limitations General appearance: alert Course Vital Signs Temperature 97.8 F 01/31/18 15:03 Pulse Rate 71 01/31/18 15:03 Respiratory Rate 18 01/31/18 15:03 Blood Pressure 155/83 01/31/18 15:03 O2 Sat by Pulse Oximetry 96 01/31/18 15:03 Temperature 97.8 F 01/31/18 16:16 Pulse Rate 66 01/31/18 17:15 Respiratory Rate 18 01/31/18 17:15 Blood Pressure 158/76 01/31/18 17:15 O2 Sat by Pulse Oximetry 100 01/31/18 17:15 Oxygen Delivery Oxygen Delivery Room Air Medical Decision Making - Lab Data Result diagrams: 01/31/18 15:04 01/31/18 15:04 Lab Results 01/31/18 01/31/18 01/31/18 Range/Units 15:04 15:04 15:04 WBC 5.5 (4.3-11.1) K/mcL RBC 4.10 L (4.19-5.50) M/mcL Hgb 12.6 L (12.9-16.9) g/dL Hct 37.7 (37.5-50.1) % MCV 92.0 (83.0-100.0) fL MCH 30.7 (28.0-33.3) pg MCHC 33.4 (31.6-35.5) g/dL RDW 13.3 (11.5-14.5) % Plt Count 169 (140-400) K/mcL MPV 10.3 (9.4-12.4) fL Immature Gran % 0.4 (0-4) % Seg Neutrophils % 54.0 % Lymphocytes % 32.2 % Monocytes % 9.4 % Eosinophils % 3.3 % Basophils % 0.7 % Neutrophils # 3.0 (1.6-8.9) K/mcL Lymphocytes # 1.8 (0.6-4.6) K/mcL Monocytes # 0.5 (0.0-1.3) K/mcL Eosinophils # 0.2 (0.0-0.6) K/mcL Basophils # 0.0 (0.0-0.2) K/mcL Sodium 142 (136-145) mEq/L Potassium 4.2 (3.5-5.1) mEq/L Chloride 110 H (98-107) mEq/L Carbon Dioxide 29 (23-29) mEq/L BUN 18 (8-23) mg/dL Creatinine 1.21 (0.70-1.30) mg/dL Est GFR ( Amer) > 60 (> 60) Est GFR (Non-Af Amer) 57 L (> 60) BUN/Creatinine Ratio 15 (6-26) Glucose 97 (70-105) mg/dL Calculated Osmolality 296 (280-300) Calcium 9.5 (8.6-10.3) mg/dL Troponin I < 0.03 (< 0.04) ng/mL B-Natriuretic Peptide 343 H (Less than 100) pg/mL Attestation Statement - Attestation Attestation: I examined this patient and my medical decision-making was reviewed with the Resident Physician. I agree with the documented findings, disposition and treatment plan as described except to the extent set forth below. Patient to the ED complaining of lower extremities swelling. Increasing over several days. Had to be taken off his Lasix because his blood pressures been running low. Complains of some dyspnea on exertion. Denies orthopnea. Also complains of a headache. This is not a new headache for him. He gets it occasionally and has had imaging of his brain including an MRI. On exam he is awake alert oriented in no acute distress. Moving all extremities. He does have 3+ edema to the lower legs. Plan. Lasix. Cardiac workup. Likely admission. Workup shows elevated BNP. Admitted for diuresis.
--- NOTE | 2018-01-31 18:24 | Internal Med History&Physical ---
Date of Encounter: 01/31/18 Time of Encounter: 18:00 Internal Medicine - H&P: HPI Chief complaint: Lower extremity swelling Admitted From: Home Plans for Post Hospital Care: Home History of present illness: Patient is a 87-year-old male with past medical history significant for coronary artery disease with previous CABG (5 vessels ) in the , hyperlipidemia and GERD who presents to the ER on 01/31/18 due to increased lower extremity swelling. Patient reports that for the last month he has had intermittent bilateral lower extremity edema that has gotten worse in the last few weeks. Patient denies any chest pain or shortness of breath but does think that he has gained weight recently. Patient called his family physician today who recommended that he come into the ER for evaluation. In the ER, patient was found to have a BNP of 343 with bilateral lower extremity edema on exam. Patient will be admitted to the medical surgical floor for new onset of congestive heart failure. Past Med Surg Social Fam HX - Past Medical History Medical history: coronary artery disease, hyperlipidemia, myocardial infarction Psychiatric history: no psych history - Past Surgical History Surgical History: coronary bypass (CABG), orthopedic, other Additional surgical history: bilat knee replacement, broken neck, - Social History Smoking Status: Current every day smoker Smokeless Tobacco Status: No Alcohol use: occasionally Drug use: none - Family History Father Living Status: Hx Family Respiratory Disorders: Yes (black lung) Internal Medicine - H&P: Meds Aspirin 81 mg PO DAILY 06/09/16 [History] Fenofibrate [Tricor] 54 mg PO DAILY 01/31/18 [History] Fludrocortisone Acetate [Florinef] 0.1 mg PO DAILY 01/31/18 [History] Omeprazole [PriLOSEC] 40 mg PO DAILY 01/31/18 [History] Rosuvastatin Calcium [Crestor] 10 mg PO HS 01/31/18 [History] Tizanidine HCl 2 mg PO DAILY PRN 01/31/18 [History] 3 Allergy/AdvReac Type Severity Reaction Status Date / Time No Known Allergies Allergy Verified 01/11/17 13:06 All Systems PM: A 10-system review of systems was performed and is negative for pertinent findings except as documented above in the HPI. - Constitutional Vitals: Temp Pulse Resp BP Pulse Ox 97.8 F 66 18 158/76 100 01/31/18 16:16 01/31/18 17:15 01/31/18 17:15 01/31/18 17:15 01/31/18 17:15 General appearance: Present: A&O X 3, no acute distress Exam: See below - Eye Eye exam: Present: normal appearance - ENT ENT exam: Present: mucous membranes moist - Respiratory Respiratory exam: Present: CTAB. Absent: accessory muscle use, rales, rhonchi, wheezes - Cardiovascular Cardiovascular exam: Present: irregular rhythm, +S1, +S2. Absent: diastolic murmur, gallop, rubs, systolic murmur - GI/Abdominal GI/Abdominal exam: Present: normal bowel sounds, soft, no peritoneal signs. Absent: distended, tenderness - Expanded Lower Extremities Exam Lower Leg exam: Present: swelling (Patient with bilateral +1 pitting edema up to mid tibia) Ankle exam: Present: swelling Foot/Toe exam: Present: swelling - Neurological Exam Neurological exam: Present: oriented X3 - Psychiatric Psychiatric exam: Present: normal mood - Skin Skin exam: Present: normal color Internal Med - H&P Results - Labs CBC & Chem 7: 01/31/18 15:04 01/31/18 15:04 - Assessment and plan (1) Acute CHF (congestive heart failure) Current Visit: Yes Status: Acute Assessment and plan: In the ER, patient was found to have a BNP of 343 with bilateral lower extremity edema on exam. Echocardiogram on 12/2016 showed LVEF of 50% with mild left ventricular diastolic dysfunction without any significant valvular dysfunction or evidence of pulmonary hypertension. Will continue IV diuresis and repeat echocardiogram Cardiology consulted and appreciate recommendations Qualifiers: Heart failure type: unspecified Qualified Code(s): I50.9 - Heart failure, unspecified (2) Coronary artery disease Current Visit: No Status: Chronic Assessment and plan: Patient with prior CABG (5 vessels ) in the First set of cardiac biomarkers negative Will trend serial troponins and monitor on telemetry Qualifiers: Coronary Disease-Associated Artery/Lesion type: [place] artery [place] vs. transplanted heart: [place] heart Associated angina: angina presence unspecified Qualified Code(s): I25.10 - Atherosclerotic heart disease of [place] coronary artery without angina pectoris (3) GERD (gastroesophageal reflux disease) Current Visit: Yes Status: Acute Assessment and plan: Continue PPI Qualifiers: Esophagitis presence: esophagitis presence not specified Qualified Code(s) : K21.9 - Gastro-esophageal reflux disease without esophagitis (4) DVT prophylaxis Current Visit: No Status: Acute Assessment and plan: Subcutaneous heparin - Time Spent With Patient Total time spent is greater than 50% in coordination of care (as documented) at patient's floor/unit and/or counseling patient:
[2018-01-31] MEDS ORDERED: Naloxone 0.4 MG/ML INJ IVP PRN (18:30)
[2018-01-31] MEDS ORDERED: tiZANidine 4 MG TABLET PO PRN (18:35)
[2018-01-31] MEDS: *HR* Heparin 5,000 UNIT/ML VIAL SQ SCH (20:48)
[2018-01-31] MEDS: Acetaminophen 325 MG TABLET PO PRN (23:24)
[2018-02-01 05:20] LABS: Basophils # 0.1 K/mcL (0.0-0.2); Basophils % 1.1 %; Eosinophils # 0.2 K/mcL (0.0-0.6); Hematocrit 36.2 % (37.5-50.1); Hemoglobin 12.5 g/dL (12.9-16.9); Immature Granulocytes % 0.2 % (0-4); Lymphocytes # 2.1 K/mcL (0.6-4.6); Lymphocytes % 40.5 %; Mean Corpuscular HGB Conc 34.5 g/dL (31.6-35.5); Mean Corpuscular Hemoglobin 31.2 pg (28.0-33.3); Mean Corpuscular Volume 90.3 fL (83.0-100.0); Mean Platelet Volume 10.4 fL (9.4-12.4); Monocytes # 0.6 K/mcL (0.0-1.3); Monocytes % 10.5 %; Neutrophils # 2.4 K/mcL (1.6-8.9); Platelet Count 169 K/mcL (140-400); Red Blood Count 4.01 M/mcL (4.19-5.50); Red Cell Distribution Width 13.2 % (11.5-14.5); Segmented Neutrophils % 44.7 %
[2018-02-01 05:43] LABS: BUN/Creatinine Ratio 20 (6-26); Blood Urea Nitrogen 22 mg/dL (8-23); Calcium 9.2 mg/dL (8.6-10.3); Carbon Dioxide 26 mEq/L (23-29); Chloride 110 mEq/L (98-107); Glucose 96 mg/dL (70-105); Osmolality,Calculated 297 (280-300); Potassium 3.6 mEq/L (3.5-5.1); Sodium 142 mEq/L (136-145); eGFR For Non-African Americans > 60 (> 60)
[2018-02-01] MEDS: *HR* Heparin 5,000 UNIT/ML VIAL SQ SCH ×3 (06:05→20:37)
[2018-02-01] MEDS: Fenofibrate 54 MG TABLET PO SCH (08:16)
[2018-02-01] MEDS: Aspirin 81 MG TAB.CHEW PO SCH (08:16)
[2018-02-01] MEDS ORDERED: Furosemide 40 MG/4 ML VIAL IVP SCH (09:00)
--- NOTE | 2018-02-01 11:05 | Cardiology Consult Note ---
Date of Encounter: 02/01/18 Time of Encounter: 11:01 Assessment and Plan (1) Acute CHF (congestive heart failure) Current Visit: Yes Status: Acute Presented with LE edema over the past month and weight gain of 10 pounds over the past 2 months. BNP only mildly elevated at 343. CXR showed progression of chronic interstitial lung disease, but no edema or pleural effusions. Known mildly reduced/low normal EF of 50% with moderate diastolic dysfunction on TTE 12/2017. Will recheck a limited TTE to re-evaluate EF (systolic vs diastolic CHF). Pt was initially started on IV lasix 40mg daily, has now been transitioned to PO Lasix 40mg BID per primary team. CHF teaching discussed--2L and Na fluid restriction, I/Os. Qualifiers: Heart failure type: unspecified Qualified Code(s): I50.9 - Heart failure, unspecified (2) Coronary artery disease Current Visit: No Status: Chronic Known CAD hx with 5V CABG in the . Pt denies chest pain. Troponins negative. Stress test 02/2017 perfusion imaging negative for ischemia or infarct. Qualifiers: Coronary Disease-Associated Artery/Lesion type: [place] artery [place] vs. transplanted heart: [place] heart Associated angina: angina presence unspecified Qualified Code(s): I25.10 - Atherosclerotic heart disease of [place] coronary artery without angina pectoris Discussion w patient/family: The assessment and plan as outlined above was discussed with the patient and/or family members who expressed understanding and agreement. All questions were answered. Thank you for involving us in the care of your patient. Please call with any questions. I will discuss all the above with Dr. Wang and make changes as necessary. History of Present Illness Consult date: 02/01/18 Requesting physician: Dom New Consult reason: CHF Chief complaint: LE edema History of present illness: Mr. Kinsey is a 87 year old male with PMH of CAD with previous CABG (5 vessel) in the , HLD, and GERD who presented to the ER on 01/31/18 due to increased lower extremity swelling. Pt reports that for the last month he has had intermittent bilateral lower extremity edema that has gotten worse in the last few weeks. He denies any chest pain or shortness of breath but has gained 10 pounds in the past 2 months. BNP 343. CXR showed increased right sided peripheral pulmonary opacity which may reflect progression of chronic interstitial lung disease. Cardiology consulted for further recs. Recent CV testing: TTE 01/04/18: LVEF 50%, moderate LVDD, moderate MR, mild TR, mild phtn. Holter 01/03/18 3 beat run NSVT, occasional PACs. Stress test 03/09/17: Perfusion imaging negative for ischemia or infarct. Gated EF >70%. Past Med Surg Social Fam HX - Past Medical History Medical history: CHF, coronary artery disease, hyperlipidemia, myocardial infarction, renal disease Psychiatric history: no psych history - Past Surgical History Surgical History: coronary bypass (CABG), orthopedic, other Additional surgical history: bilat knee replacement, broken neck, - Social History Smoking Status: Current every day smoker Smokeless Tobacco Status: No Alcohol use: rarely, occasionally Drug use: none - Family History Father Living Status: Hx Family Respiratory Disorders: Yes (black lung) Medications and Allergies Aspirin 81 mg PO DAILY 06/09/16 [History] Fenofibrate [Tricor] 54 mg PO DAILY 01/31/18 [History] Fludrocortisone Acetate [Florinef] 0.1 mg PO DAILY 01/31/18 [History] Omeprazole [PriLOSEC] 40 mg PO DAILY 01/31/18 [History] Rosuvastatin Calcium [Crestor] 10 mg PO HS 01/31/18 [History] Tizanidine HCl 2 mg PO DAILY PRN 01/31/18 [History] 3 Allergy/AdvReac Type Severity Reaction Status Date / Time No Known Allergies Allergy Verified 01/11/17 13:06 All Systems Review: The remainder of the systems were reviewed and are negative - Cardiovascular Cardiovascular: as per HPI, dyspnea on exertion, leg edema Physical Examination Vital Signs, Last 4 Hours Temp Pulse Resp BP Pulse Ox 02/01/18 07:24 97.7 F 69 17 135/68 96 Vital Signs Temp Pulse Resp BP Pulse Ox 02/01/18 07:24 97.7 F 69 17 135/68 96 02/01/18 04:42 97.7 F 65 16 137/72 96 02/01/18 00:20 97.9 F 64 15 153/90 97 01/31/18 19:29 97.6 F 66 15 151/72 98 18 17:15 66 18 158/76 100 01/31/18 16:16 97.8 F 71 18 146/76 98 01/31/18 15:03 97.8 F 71 18 155/83 96 Intake and Output 01/31/18 02/01/18 02/01/18 23:59 07:59 15:59 Intake Total 0 / 0 120 / 120 240 / 240 Output Total 300 / 300 380 / 380 Balance -300 / -300 -260 / -260 240 / 240 Intake: Oral 0 / 0 120 / 120 240 / 240 Output: Urine 300 / 300 380 / 380 Other: Meal Breakfast Percent of Meal Consumed 35% Weight 79.6 kg General: Conversant, No Apparent Distress HEENT: Atraumatic, Normocephaly, Mucus Membranes Moist Neck: No JVD, Normal carotid pulses Cardiac: Reg Rate and Rhythm, Normal S1 and S2, No Murmur Lungs: Other (coarse bilaterally) Neuro: Alert and responsive, No focal deficits noted Abdomen: Soft, Non-Tender Skin: No rashes noted on visualized skin Musculoskeletal: No Chest Wall Tenderness Extremities: Other (mild LE edema) Results 02/01/18 04:51 02/01/18 04:51 Lab Results 01/31/18 02/01/18 02/01/18 22:48 04:51 04:51 WBC 5.3 Hgb 12.5 L Hct 36.2 L Plt Count 169 Sodium Potassium Chloride Carbon Dioxide BUN Creatinine Glucose Calcium Troponin I < 0.03 < 0.03 02/01/18 04:51 WBC Hgb Hct Plt Count Sodium 142 Potassium 3.6 Chloride 110 H Carbon Dioxide 26 BUN 22 Creatinine 1.09 Glucose 96 Calcium 9.2 Troponin I Short CBC 02/01/18 01/31/18 Range/Units 04:51 15:04 WBC 5.3 5.5 (4.3-11.1) K/mcL Hgb 12.5 L 12.6 L (12.9-16.9) g/dL Hct 36.2 L 37.7 (37.5-50.1) % Plt Count 169 169 (140-400) K/mcL Neutrophils # 2.4 3.0 (1.6-8.9) K/mcL BMP 02/01/18 01/31/18 Range/Units 04:51 15:04 Sodium 142 142 (136-145) mEq/L Potassium 3.6 4.2 (3.5-5.1) mEq/L Chloride 110 H 110 H (98-107) mEq/L Carbon Dioxide 26 29 (23-29) mEq/L BUN 22 18 (8-23) mg/dL Creatinine 1.09 1.21 (0.70-1.30) mg/dL Glucose 96 97 (70-105) mg/dL Calcium 9.2 9.5 (8.6-10.3) mg/dL Cardiac Enzymes 02/01/18 01/31/18 01/31/18 Range/Units 04:51 22:48 15:04 Troponin I < 0.03 < 0.03 < 0.03 (< 0.04) ng/mL Impressions Chest X-Ray 01/31/18 15:04 IMPRESSION: Increased right-sided peripheral pulmonary opacity may reflect progression of chronic interstitial lung disease. Acute pneumonia is felt less likely. D/ / 01/31/2018 15:47:18 Amol Fontenot MD / Mary Villarreal Interpreting Provider: Amol Fontenot MD Active Medications Acetaminophen (Tylenol) 650 mg PO Q6HR PRN PRN Reason: Pain Stop: 08/02/18 23:15 Last Admin: 01/31/18 23:24 Dose: 650 mg Aspirin (Aspirin) 81 mg PO DAILY [facility] Stop: 08/03/18 09:01 Last Admin: 02/01/18 08:16 Dose: 81 mg Fenofibrate (Tricor) 54 mg PO DAILY [facility] PRN Reason: Protocol Stop: 08/03/18 09:01 Last Admin: 02/01/18 08:16 Dose: 54 mg Fludrocortisone Acetate (Florinef) 0.1 mg PO DAILY [facility] Stop: 08/03/18 09:01 Last Admin: 02/01/18 08:16 Dose: 0.1 mg Furosemide (Lasix) 40 mg PO BIDDIURETIC [facility] Stop: 08/04/18 08:01 Heparin Sodium (Porcine) (Heparin) 5,000 unit SQ Q8HCO [facility]AL[facility] Stop: 08/02/18 22:01 Last Admin: 02/01/18 06:05 Dose: 5,000 unit Naloxone HCl (Narcan) 0.4 mg IVP Q2MIN PRN PRN Reason: SEE COMMENTS Stop: 08/02/18 18:31 Omeprazole (Prilosec) 40 mg PO DAILY [facility] Stop: 08/03/18 09:01 Last Admin: 02/01/18 08:16 Dose: 40 mg Rosuvastatin Calcium (Crestor) 10 mg PO HS [facility] Stop: 08/02/18 21:01 Last Admin: 01/31/18 20:48 Dose: 10 mg Tizanidine HCl (Zanaflex) 2 mg PO DAILY PRN PRN Reason: MUSCLE SPASMS - Imaging and Cardiology Stress Test: report reviewed Echo: report reviewed Holter: report reviewed - EKG Interpretation EKG results cardiology: personally reviewed, other (12 hr tele AVG HR 66, SR with ectopy) Consult Discharge Plan - Plan Referrals: Brayan Leos MD [Primary Care Provider] -
--- NOTE | 2018-02-01 12:54 | Internal Med Progress Note ---
Hospitalist Progress Note - Encounter Date of Encounter: 02/01/18 Time of Encounter: 10:00 - Subjective Interval History: Patient feels better today. Lower extremity swelling has improved but is. Denies any chest pain or palpitations. Does have dyspnea with exertion. No orthopnea or PND. - Exam Vitals: Temp Pulse Resp BP Pulse Ox 97.7 F 72 18 131/79 96 02/01/18 11:18 02/01/18 11:18 02/01/18 11:18 02/01/18 11:18 02/01/18 11:18 Exam: General: Patient is alert, no acute distress, oriented x 3 Respiratory: Good respiratory effort. Normal breath sounds. No wheezing or crackles. Cardiovascular: Regular rate and rhythm. s1 and s2 normal. No clicks, rubs, gallops, or murmurs. Bilateral pedal edema. Improving Abdomen: Abdomen is soft, nontender. Bowel sounds are present Musculoskeletal: Spontaneously moving all extremities Skin: warm, dry, intact. Neuro: Alert oriented x 3 normal cranial nerves, no focal deficits - Assessment and Plan (1) Acute CHF (congestive heart failure) Current Visit: Yes Status: Acute Assessment and Plan: Responded well to intravenous Lasix. Will continue Lasix intravenously for today. Transition to oral Lasix tomorrow. Cardiology consult appreciated. Follow a limited echocardiogram. Continue fluid restriction. (2) Coronary artery disease Current Visit: Yes Status: Chronic Assessment and Plan: Continue aspirin, statin. No chest pain at this time. (3) DVT prophylaxis Current Visit: Yes Status: Acute Assessment and Plan: On subcutaneous heparin (4) GERD (gastroesophageal reflux disease) Current Visit: Yes Status: Acute Assessment and Plan: Continue Prilosec - Time Spent with Patient Total time spent is greater than 50% in coordination of care (as documented) at patient's floor/unit and/or counseling patient: Internal Medicine: Result - Labs CBC & Chem 7: 02/01/18 04:51 02/01/18 04:51 Labs: Short CBC 02/01/18 Range/Units 04:51 WBC 5.3 (4.3-11.1) K/mcL Hgb 12.5 L (12.9-16.9) g/dL Hct 36.2 L (37.5-50.1) % Plt Count 169 (140-400) K/mcL Neutrophils # 2.4 (1.6-8.9) K/mcL BMP 02/01/18 04:51 Sodium 142 Potassium 3.6 Chloride 110 H Carbon Dioxide 26 BUN 22 Creatinine 1.09 Glucose 96 Calcium 9.2 Cardiac Enzymes 01/31/18 02/01/18 02/01/18 Range/Units 22:48 04:51 10:40 Troponin I < 0.03 < 0.03 < 0.03 (< 0.04) ng/mL Consult Discharge Plan - Plan Referrals: Brayan Leos MD [Primary Care Provider] - (1) Acute CHF (congestive heart failure) Qualifiers: Heart failure type: combined systolic and diastolic Qualified Code(s): I50.41 - Acute combined systolic (congestive) and diastolic (congestive) heart failure (2) Coronary artery disease Qualifiers: Coronary Disease-Associated Artery/Lesion type: [place] artery [place] vs. transplanted heart: [place] heart Associated angina: angina presence unspecified Qualified Code(s): I25.10 - Atherosclerotic heart disease of [place] coronary artery without angina pectoris (4) GERD (gastroesophageal reflux disease) Qualifiers: Esophagitis presence: esophagitis presence not specified Qualified Code(s): K21.9 - Gastro-esophageal reflux disease without esophagitis
--- NOTE | 2018-02-01 17:12 | Electrocardiograph Report ---
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
--- NOTE | 2018-02-01 17:21 | Electrocardiograph Report ---
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
--- NOTE | 2018-02-01 17:23 | Electrocardiograph Report ---
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
[2018-02-02] MEDS: Acetaminophen 325 MG TABLET PO PRN ×2 (00:37→09:10)
[2018-02-02 06:07] LABS: BUN/Creatinine Ratio 20 (6-26); Blood Urea Nitrogen 19 mg/dL (8-23); Calcium 9.1 mg/dL (8.6-10.3); Carbon Dioxide 26 mEq/L (23-29); Chloride 109 mEq/L (98-107); Glucose 97 mg/dL (70-105); Osmolality,Calculated 294 (280-300); Potassium 3.5 mEq/L (3.5-5.1); Sodium 141 mEq/L (136-145); eGFR For Non-African Americans > 60 (> 60)
[2018-02-02] MEDS: *HR* Heparin 5,000 UNIT/ML VIAL SQ SCH (06:09)
[2018-02-02 07:18] VITALS: BP 142/78
[2018-02-02] MEDS ORDERED: Furosemide 40 MG TABLET PO SCH (08:00)
[2018-02-02] MEDS: Aspirin 81 MG TAB.CHEW PO SCH (09:10)
[2018-02-02] MEDS: Fenofibrate 54 MG TABLET PO SCH (09:10)
--- NOTE | 2018-02-02 09:49 | Discharge Summary ---
- NOTES TO OUTPATIENT PROVIDER Notes to Outpatient Provider: Patient was hospitalized here with lower extremity swelling with concern for acute congestive heart failure. He is not previously been diagnosed with congestive heart failure but did have diastolic dysfunction and mildly reduced ejection fraction per 2-D echocardiogram done earlier this year. He was started on Lasix and has had improvement in his lower extremity swelling. He is now stable to be discharged home. He was evaluated by cardiology and will follow up with them after discharge. He will be discharged on oral Lasix and is advised to be on fluid restriction diet. I am also placing him on low-dose of lisinopril for hypertension. Date of Encounter: 02/02/18 Time of Encounter: 09:46 - Discharge Diagnosis (1) Acute CHF (congestive heart failure) Priority: Primary Status: Acute Qualifiers: Heart failure type: combined systolic and diastolic Qualified Code(s): I50.41 - Acute combined systolic (congestive) and diastolic (congestive) heart failure (2) Coronary artery disease Priority: Secondary Status: Chronic Qualifiers: Coronary Disease-Associated Artery/Lesion type: [place] artery [place] vs. transplanted heart: [place] heart Associated angina: angina presence unspecified Qualified Code(s): I25.10 - Atherosclerotic heart disease of [place] coronary artery without angina pectoris (3) DVT prophylaxis Priority: Secondary Status: Acute (4) GERD (gastroesophageal reflux disease) Priority: Secondary Status: Acute Qualifiers: Esophagitis presence: esophagitis presence not specified Qualified Code(s) : K21.9 - Gastro-esophageal reflux disease without esophagitis Hospital course: Mr. Kinsey is a 87 year old male Patient with history of coronary artery disease who was hospitalized here with lower extremity swelling with concern for acute congestive heart failure. He is not previously been diagnosed with congestive heart failure but did have diastolic dysfunction and mildly reduced ejection fraction per 2-D echocardiogram done earlier this year. He was started on Lasix and has had improvement in his lower extremity swelling. He is now stable to be discharged home. He was evaluated by cardiology and will follow up with them after discharge. He will be discharged on oral Lasix and is advised to be on fluid restriction diet. I am also placing him on low-dose of lisinopril for hypertension. Patient also has been having intermittent headaches especially at night. While this could be a function of his hypertension, patient has also had injections for headaches in the past. Possibly Botox injections. Would recommend outpatient follow-up with neurology. Discharge discussed with: patient, family, nurse, case management - Time Spent with Patient Total time spent providing and/or coordinating discharge services: Greater than 30 minutes (32 min) - Discharge Medications Prescriptions: Furosemide [Lasix] 40 mg PO DAILY #30 tablet Lisinopril [Zestril] 5 mg PO DAILY #30 tablet Home Medications: Aspirin 81 mg PO DAILY 06/09/16 [History] Fenofibrate [Tricor] 54 mg PO DAILY 01/31/18 [History] Fludrocortisone Acetate [Florinef] 0.1 mg PO DAILY 01/31/18 [History] Omeprazole [PriLOSEC] 40 mg PO DAILY 01/31/18 [History] Rosuvastatin Calcium [Crestor] 10 mg PO HS 01/31/18 [History] Tizanidine HCl 2 mg PO DAILY PRN 01/31/18 [History] Furosemide [Lasix] 40 mg PO DAILY #30 tablet 02/02/18 [Rx] Lisinopril [Zestril] 5 mg PO DAILY #30 tablet 02/02/18 [Rx] Allergies/Adverse Reactions: 3 Allergy/AdvReac Type Severity Reaction Status Date / Time No Known Allergies Allergy Verified 01/11/17 13:06 Date of admission: 01/31/18 17:42 Primary care physician: Brayan Leos MD Consults: 01/31/18 18:35 Consult to Cardiology [CONS] Routine Comment: Consulting Provider: Cardiology Jeri Reason for Consult: New onset CHF Call Completed: Yes 02/02/18 09:10 Consult to Darkroom Technician [CONS] Routine Reason for SW Consult: home health Discharging clinician: Dimple Julien Anticipated date of discharge: 02/02/18 - Constitutional Vitals: Temp Pulse Resp BP Pulse Ox 98.2 F 62 17 142/78 96 02/02/18 07:17 02/02/18 07:17 02/02/18 07:02/02/18 07:02/02/18 09:17 General appearance: Present: A&O X 3, no acute distress Exam: General: Patient is alert, no acute distress, oriented x 3 Respiratory: Good respiratory effort. Normal breath sounds. No wheezing or crackles. Cardiovascular: Regular rate and rhythm. s1 and s2 normal No clicks, rubs, gallops, or murmurs. Bilateral lower extremity pedal edema now resolved. Abdomen: Abdomen is soft, nontender. Bowel sounds are present Neuro: Alert oriented x 3 normal cranial nerves, no focal deficits - Patient Status Disposition: Home Health Service Condition: Good Functional capacity at discharge: independent ambulation Overall status at discharge: patient is progressing back to baseline - Discharge Instructions Instructions: Heart Failure (DC) Follow Up With: Forrest Peralta DO [Partnered Physician] - 02/09/18 10:30 am (Please follow up with Louis Garcia as schedule...) Brayan Leos MD [Primary Care Provider] - 02/14/18 10:00 am (In 1-2 weeks) Nicole Perez MD [Partnered Physician] - 02/22/18 10:15 am (In 1-2 weeks for migraine headaches) - Diet and Activity Activity: increase activity as tolerated Diet: low fat, low cholesterol, low salt diet, other (Fluid restriction to 1.5 L per day.)
--- NOTE | 2018-02-02 10:02 | Physician Discharge Referral ---
Home Health/Hosp Referral Info Transfer to: Home Health Provider in Charge Post Discharge: PCP - Diagnosis (1) Acute CHF (congestive heart failure) Priority: Primary Status: Acute (2) Coronary artery disease Priority: Secondary Status: Chronic (3) DVT prophylaxis Priority: Secondary Status: Acute (4) GERD (gastroesophageal reflux disease) Priority: Secondary Status: Acute - Respiratory Orders Smoking Cessation: Smoking cessation has been advised. For more information, call the [place] Tobacco Quit Line at 0-096-WKNN-NOW. - Diet/Nutrition Diet/Nutrition Orders: Cardiac Diet/Nutrition: List: Restriction to 1.5 L per day - Activity Activity Orders: Walker - Services Needed Following services are medically necessary services: Nursing, Home Health Aide - Transfer Medications Prescriptions: Furosemide [Lasix] 40 mg PO DAILY #30 tablet Lisinopril [Zestril] 5 mg PO DAILY #30 tablet Home Medications: Aspirin 81 mg PO DAILY 06/09/16 [History] Fenofibrate [Tricor] 54 mg PO DAILY 01/31/18 [History] Fludrocortisone Acetate [Florinef] 0.1 mg PO DAILY 01/31/18 [History] Omeprazole [PriLOSEC] 40 mg PO DAILY 01/31/18 [History] Rosuvastatin Calcium [Crestor] 10 mg PO HS 01/31/18 [History] Tizanidine HCl 2 mg PO DAILY PRN 01/31/18 [History] Furosemide [Lasix] 40 mg PO DAILY #30 tablet 02/02/18 [Rx] Lisinopril [Zestril] 5 mg PO DAILY #30 tablet 02/02/18 [Rx] Allergies/Adverse Reactions: 3 Allergy/AdvReac Type Severity Reaction Status Date / Time No Known Allergies Allergy Verified 01/11/17 13:06 Certification: Further, I certify that my clinical findings support that this patient is homebound (i.e. absences from home require considerable and taxing effort and are for medical reasons or advent services or infrequently or short duration when for other reasons) because: Homebound Reason: Patient requires assistance of a person or device to safely leave home Attestation: My signature below is to certify that this patient is under my care and that I, or nurse practitioner, or a physician's podiatric assistant working with me, has a face-to -face encounter with this patient.
[2018-02-03] MEDS ORDERED: Furosemide 40 MG TABLET PO SCH (09:00)
== END 2018-02-02 11:22 | disposition home health service (06) ==
LOC: 2ANU 14:45 → EMEROOARM 14:45 → SUATTDRO 17:42 → 2ANU 18:13
PROVIDERS: ADMIT Student in an Organized Health Care Education/Training Program; ATTEND Internal Medicine

== ENCOUNTER 2019-07-25 12:38 | Observation (INO) ==
[2019-07-25 13:22] LABS: Basophils # 0.1 K/mcL (0.0-0.2); Basophils % 0.6 %; Eosinophils # 0.4 K/mcL (0.0-0.6); Eosinophils % 4.4 %; Hemoglobin 13.7 g/dL (12.9-16.9); Immature Granulocytes % 0.4 % (0-4); Lymphocytes # 1.9 K/mcL (0.6-4.6); Lymphocytes % 22.8 %; Mean Corpuscular HGB Conc 32.6 g/dL (31.6-35.5); Mean Corpuscular Hemoglobin 30.6 pg (28.0-33.3); Mean Corpuscular Volume 93.8 fL (83.0-100.0); Mean Platelet Volume 10.1 fL (9.4-12.4); Monocytes # 0.7 K/mcL (0.0-1.3); Monocytes % 7.7 %; Neutrophils # 5.4 K/mcL (1.6-8.9); Platelet Count 244 K/mcL (140-400); Red Blood Count 4.48 M/mcL (4.19-5.50); Red Cell Distribution Width 13.2 % (11.5-14.5); Segmented Neutrophils % 64.1 %; White Blood Count 8.5 K/mcL (4.3-11.1)
[2019-07-25 13:25] LABS: INR 1.1; Prothrombin Time 12.7 Seconds (9.4-12.1)
[2019-07-25 13:54] LABS: BUN/Creatinine Ratio 20 (6-26); Blood Urea Nitrogen 26 mg/dL (8-23); Calcium 10.5 mg/dL (8.6-10.3); Carbon Dioxide 23 mEq/L (23-29); Chloride 108 mEq/L (98-107); Glucose 85 mg/dL (70-105); Osmolality,Calculated 294 (280-300); Potassium 4.1 mEq/L (3.5-5.1); Sodium 140 mEq/L (136-145); Troponin I < 0.03 ng/mL (< 0.04); eGFR For African Americans > 60 (> 60); eGFR For Non-African Americans 51 (> 60)
[2019-07-25] MEDS ORDERED: Azithromycin 500 MG in 0.9 % Sodium Chloride 250 ML IVPB ONE (15:04)
[2019-07-25] MEDS ORDERED: cefTRIAXone 1,000 MG in 0.9 % Sodium Chloride Mini Bag 100 ML IVPB ONE (15:04)
[2019-07-25] MEDS ORDERED: cefTRIAXone 1,000 MG in Water for inj. (sterile) 10 ML IVP ONE (15:30)
[2019-07-25] MEDS ORDERED: Ipratropium Neb 0.5 MG NEBULIZER IH PRN (16:09)
[2019-07-25] MEDS ORDERED: Naloxone 0.4 MG/ML INJ IVP PRN (16:14)
[2019-07-25] MEDS ORDERED: Melatonin 3 MG TABLET PO PRN (16:14)
[2019-07-25] MEDS ORDERED: Acetaminophen 325 MG TABLET PO PRN (16:14)
[2019-07-25] MEDS ORDERED: levoFLOXacin 750 MG/150 ML 750 MG/150 ML BAG IVPB SCH (17:00)
[2019-07-25] MEDS: predniSONE 20 MG TABLET PO SCH (18:09)
[2019-07-25] MEDS: Ipratropium/Albuterol Neb 3 ML IH SCH (22:35)
[2019-07-26 02:21] LABS: Adenovirus Not Detected (Not Detect); Bordetella Pertussis Not Detected (Not Detect); Chlamydophila pneumoniae Not Detected (Not Detect); Coronavirus 229E Not Detected (Not Detect); Coronavirus HKU1 Not Detected (Not Detect); Coronavirus NL63 Not Detected (Not Detect); Coronavirus OC43 Not Detected (Not Detect); Human Metapneumovirus Not Detected (Not Detect); Human Rhinovirus/Enterovirus Not Detected (Not Detect); Influenza A Subtype 2009 H1 Not Detected (Not Detect); Influenza B Not Detected (Not Detect); Mycoplasma pneumoniae Not Detected (Not Detect); Parainfluenza Virus 1 Not Detected (Not Detect); Parainfluenza Virus 2 Not Detected (Not Detect); Parainfluenza Virus 3 Not Detected (Not Detect); Parainfluenza Virus 4 Not Detected (Not Detect); Respiratory Syncytial Virus Not Detected (Not Detect)
[2019-07-26 02:55] LABS: Basophils % 0.2 %; Eosinophils % 0.2 %; Hematocrit 40.2 % (37.5-50.1); Hemoglobin 13.3 g/dL (12.9-16.9); Immature Granulocytes % 0.4 % (0-4); Lymphocytes # 0.9 K/mcL (0.6-4.6); Lymphocytes % 10.8 %; Mean Corpuscular HGB Conc 33.1 g/dL (31.6-35.5); Mean Corpuscular Hemoglobin 30.6 pg (28.0-33.3); Mean Corpuscular Volume 92.6 fL (83.0-100.0); Mean Platelet Volume 10.1 fL (9.4-12.4); Monocytes # 0.1 K/mcL (0.0-1.3); Monocytes % 1.2 %; Neutrophils # 7.4 K/mcL (1.6-8.9); Platelet Count 217 K/mcL (140-400); Red Blood Count 4.34 M/mcL (4.19-5.50); Red Cell Distribution Width 12.8 % (11.5-14.5); Segmented Neutrophils % 87.2 %; White Blood Count 8.4 K/mcL (4.3-11.1)
[2019-07-26 03:17] LABS: Calcium 10.1 mg/dL (8.6-10.3); Magnesium 1.9 mg/dL (1.6-2.6); Potassium 4.4 mEq/L (3.5-5.1)
[2019-07-26] MEDS: Ipratropium/Albuterol Neb 3 ML IH SCH ×2 (03:26→10:24)
[2019-07-26] MEDS: predniSONE 20 MG TABLET PO SCH (08:55)
[2019-07-26] MEDS ORDERED: Fenofibrate 54 MG TABLET PO SCH (09:00)
[2019-07-26] MEDS ORDERED: Aspirin 81 MG TAB.CHEW PO SCH (09:00)
[2019-07-26 11:56] VITALS: BP 110/60
[2019-07-26] MEDS ORDERED: cefTRIAXone 1,000 MG in 0.9 % Sodium Chloride Mini Bag 100 ML IVPB SCH (15:00)
[2019-07-26] MEDS ORDERED: Azithromycin 500 MG in 0.9 % Sodium Chloride 250 ML IVPB SCH (15:00)
== END 2019-07-26 13:45 | disposition home or self-care (01) ==
LOC: 2NENU 12:38 → EMEROOARM 12:38 → SUATTDRO 16:22 → 2NENU 17:17
PROVIDERS: ADMIT Internal Medicine; ATTEND Internal Medicine

== ENCOUNTER 2019-09-17 15:35 | Inpatient (IN) ==
[2019-09-17 16:03] LABS: Basophils # 0.1 K/mcL (0.0-0.2); Basophils % 0.8 %; Eosinophils # 0.7 K/mcL (0.0-0.6); Eosinophils % 7.9 %; Hematocrit 42.6 % (37.5-50.1); Hemoglobin 13.5 g/dL (12.9-16.9); Immature Granulocytes % 0.3 % (0-4); Lymphocytes # 2.5 K/mcL (0.6-4.6); Lymphocytes % 28.3 %; Mean Corpuscular HGB Conc 31.7 g/dL (31.6-35.5); Mean Corpuscular Hemoglobin 29.7 pg (28.0-33.3); Mean Corpuscular Volume 93.8 fL (83.0-100.0); Mean Platelet Volume 10.1 fL (9.4-12.4); Monocytes # 0.7 K/mcL (0.0-1.3); Monocytes % 7.5 %; Neutrophils # 4.9 K/mcL (1.6-8.9); Platelet Count 225 K/mcL (140-400); Red Blood Count 4.54 M/mcL (4.19-5.50); Segmented Neutrophils % 55.2 %; White Blood Count 8.9 K/mcL (4.3-11.1)
[2019-09-17] MEDS ORDERED: Isovue-370 500 ML BOTTLE IVP ONE ×2 (16:05→16:24)
[2019-09-17 16:23] LABS: Alanine Aminotransferase 8 Units/L (7-52); Albumin 3.9 g/dL (3.5-5.7); Albumin/Globulin Ratio 1.3 (1.1-2.2); Alkaline Phosphatase 48 Units/L (34-104); Aspartate Amino Transferase 15 Units/L (13-39); BUN/Creatinine Ratio 18 (6-26); Bilirubin,Direct 0.1 mg/dL (0.0-0.2); Bilirubin,Indirect 0.3 mg/dL (0.0-1.0); Bilirubin,Total 0.4 mg/dL (0.3-1.0); Blood Urea Nitrogen 26 mg/dL (8-23); Calcium 10.2 mg/dL (8.6-10.3); Carbon Dioxide 27 mEq/L (23-29); Chloride 107 mEq/L (98-107); Globulin 3.1 g/dL (2.4-3.5); Glucose 77 mg/dL (70-105); Lipase 29 Units/L (11-82); Osmolality,Calculated 294 (280-300); Potassium 4.9 mEq/L (3.5-5.1); Sodium 140 mEq/L (136-145); Troponin I < 0.03 ng/mL (< 0.04); eGFR For African Americans 57 (> 60); eGFR For Non-African Americans 47 (> 60)
[2019-09-17] MEDS ORDERED: Azithromycin 500 MG in D5% in Water 250 ML IVPB ONE (16:25)
[2019-09-17] MEDS ORDERED: cefTRIAXone 1,000 MG in Water for inj. (sterile) 10 ML IVP ONE (16:25)
[2019-09-17] MEDS ORDERED: 0.9 % Sodium Chloride 1,000 ML IVC ONE (17:37)
[2019-09-17] MEDS ORDERED: Ondansetron 4 MG/2 ML VIAL IVP PRN (17:41)
[2019-09-17] MEDS ORDERED: Naloxone 0.4 MG/ML INJ IVP PRN (17:41)
[2019-09-17] MEDS ORDERED: tiZANidine 4 MG TABLET PO PRN (18:03)
[2019-09-17 18:19] LABS: Bilirubin,Urine Negative (Negative); Blood,Urine Negative (Negative); Clarity,Urine Clear (Clear); Color,Urine Yellow (Yellow); Glucose,Urine (UA) Normal (Normal); Ketones,Urine Negative (Negative); Leukocyte Esterase,Urine Small (Negative); Nitrite,Urine Negative (Negative); PH,Urine 6.5 pH Units (5.0-8.0); Protein,Urine Negative (Neg-Trace); Specific Gravity,Urine > 1.030 (1.010-1.025); Urobilinogen,Urine Normal (Normal)
[2019-09-17 18:22] LABS: Bacteria,Urine None Seen per hpf (None-Few); Hyaline Casts,Urine None Seen per lpf (None-Few); RBC,Urine 0-3 per hpf (0-3); Squamous Epithelial Cell,Urine Few per lpf (None-Few)
[2019-09-17 18:30] LABS: C-Reactive Protein < 5 mg/L (Less than 10); Lactate Dehydrogenase 200 Units/L (140-271); Phosphorous 3.6 mg/dL (2.7-4.5)
[2019-09-17 18:38] LABS: INR 1.2; Prothrombin Time 13.3 Seconds (9.4-12.1)
[2019-09-17 18:44] LABS: Activated Partial Thrombo Time 36.2 Seconds (26.0-36.0)
[2019-09-17 18:49] LABS: Ferritin 268 ng/mL (20-250)
[2019-09-17 19:35] LABS: Adenovirus Not Detected (Not Detect); Bordetella Pertussis Not Detected (Not Detect); Chlamydophila pneumoniae Not Detected (Not Detect); Coronavirus 229E Not Detected (Not Detect); Coronavirus HKU1 Not Detected (Not Detect); Coronavirus NL63 Not Detected (Not Detect); Coronavirus OC43 Not Detected (Not Detect); Human Metapneumovirus Not Detected (Not Detect); Human Rhinovirus/Enterovirus Not Detected (Not Detect); Influenza A Subtype 2009 H1 Not Detected (Not Detect); Influenza B Not Detected (Not Detect); Mycoplasma pneumoniae Not Detected (Not Detect); Parainfluenza Virus 1 Not Detected (Not Detect); Parainfluenza Virus 2 Not Detected (Not Detect); Parainfluenza Virus 3 Not Detected (Not Detect); Parainfluenza Virus 4 Not Detected (Not Detect); Respiratory Syncytial Virus Not Detected (Not Detect)
[2019-09-17] MEDS: predniSONE 20 MG TABLET PO SCH (21:49)
[2019-09-17] MEDS: *HR* Heparin 5,000 UNIT/ML VIAL SQ SCH (21:50)
[2019-09-17] MEDS: Budesonide/Formoterol 160/4.5 1 PUFF INH IH SCH (21:57)
[2019-09-18 02:01] LABS: Basophils # 0.1 K/mcL (0.0-0.2); Basophils % 0.5 %; Eosinophils # 0.6 K/mcL (0.0-0.6); Eosinophils % 6.9 %; Hematocrit 38.3 % (37.5-50.1); Hemoglobin 12.2 g/dL (12.9-16.9); Immature Granulocytes % 0.4 % (0-4); Lymphocytes # 2.2 K/mcL (0.6-4.6); Lymphocytes % 23.4 %; Mean Corpuscular HGB Conc 31.9 g/dL (31.6-35.5); Mean Corpuscular Hemoglobin 29.8 pg (28.0-33.3); Mean Corpuscular Volume 93.6 fL (83.0-100.0); Mean Platelet Volume 10.5 fL (9.4-12.4); Monocytes # 0.7 K/mcL (0.0-1.3); Monocytes % 7.4 %; Neutrophils # 5.7 K/mcL (1.6-8.9); Platelet Count 193 K/mcL (140-400); Red Blood Count 4.09 M/mcL (4.19-5.50); Red Cell Distribution Width 12.8 % (11.5-14.5); Segmented Neutrophils % 61.4 %; White Blood Count 9.2 K/mcL (4.3-11.1)
[2019-09-18] MEDS: Acetaminophen 325 MG TABLET PO PRN (02:18)
[2019-09-18 02:20] LABS: Calcium 9.7 mg/dL (8.6-10.3); Potassium 4.5 mEq/L (3.5-5.1)
[2019-09-18] MEDS: *HR* Heparin 5,000 UNIT/ML VIAL SQ SCH ×2 (05:49→17:41)
[2019-09-18] MEDS: Budesonide/Formoterol 160/4.5 1 PUFF INH IH SCH ×2 (08:06→19:56)
[2019-09-18] MEDS: Cyanocobalamin (B-12) 1,000 MCG TABLET PO SCH (08:12)
[2019-09-18] MEDS: Fenofibrate 54 MG TABLET PO SCH (08:12)
[2019-09-18] MEDS: Aspirin Enteric Coated 81 MG Tablet PO SCH (08:12)
[2019-09-18] MEDS: predniSONE 20 MG TABLET PO SCH (08:12)
[2019-09-18] MEDS ORDERED: 0.9 % Sodium Chloride 1,000 ML IVC SCH (11:30)
[2019-09-18] MEDS: levoFLOXacin 750 MG/150 ML 750 MG/150 ML BAG IVPB SCH (13:37)
[2019-09-18] MEDS ORDERED: Azithromycin 500 MG in 0.9 % Sodium Chloride 250 ML IVPB SCH (18:00)
[2019-09-18] MEDS ORDERED: cefTRIAXone 2,000 MG in Water for inj. (sterile) 20 ML IVP SCH (18:00)
[2019-09-19] MEDS: *HR* Heparin 5,000 UNIT/ML VIAL SQ SCH ×2 (05:32→17:07)
[2019-09-19 06:27] LABS: Hematocrit 38.1 % (37.5-50.1); Hemoglobin 12.4 g/dL (12.9-16.9); Mean Corpuscular HGB Conc 32.5 g/dL (31.6-35.5); Mean Corpuscular Hemoglobin 29.6 pg (28.0-33.3); Mean Corpuscular Volume 90.9 fL (83.0-100.0); Mean Platelet Volume 10.4 fL (9.4-12.4); Platelet Count 224 K/mcL (140-400); Red Blood Count 4.19 M/mcL (4.19-5.50); White Blood Count 13.1 K/mcL (4.3-11.1)
[2019-09-19 06:57] LABS: BUN/Creatinine Ratio 18 (6-26); Blood Urea Nitrogen 24 mg/dL (8-23); Carbon Dioxide 22 mEq/L (23-29); Chloride 108 mEq/L (98-107); Glucose 126 mg/dL (70-105); Osmolality,Calculated 294 (280-300); Potassium 4.1 mEq/L (3.5-5.1); Sodium 139 mEq/L (136-145); eGFR For African Americans > 60 (> 60); eGFR For Non-African Americans 50 (> 60)
[2019-09-19] MEDS: Fenofibrate 54 MG TABLET PO SCH (08:27)
[2019-09-19] MEDS: Cyanocobalamin (B-12) 1,000 MCG TABLET PO SCH (08:27)
[2019-09-19] MEDS: Aspirin Enteric Coated 81 MG Tablet PO SCH (08:27)
[2019-09-19] MEDS: Budesonide/Formoterol 160/4.5 1 PUFF INH IH SCH ×2 (10:38→19:46)
[2019-09-19 21:42] LABS: ABG Base Excess 0 mEq/L (-2 to 3); ABG HCO3 24 mEq/L (21-27); ABG Oxygen Saturation 99 % (95-98); ABG PCO2 36 mmHg (35-45); ABG PH 7.43 pH Units (7.32-7.45); ABG PO2 145 mmHg (85-104); ABG TCO2 25 mEq/L (20-26)
[2019-09-20] MEDS: Acetaminophen 325 MG TABLET PO PRN (00:51)
[2019-09-20] MEDS: *HR* Heparin 5,000 UNIT/ML VIAL SQ SCH (03:50)
[2019-09-20] MEDS ORDERED: *HR* FentaNYL (PF) 100 MCG/2 ML VIAL ONE (06:02)
[2019-09-20] MEDS ORDERED: Dexamethasone 4 MG/ML VIAL ONE (06:02)
[2019-09-20] MEDS ORDERED: *HR* Succinylcholine 200 MG/10 ML VIAL IVP ONE (06:02)
[2019-09-20] MEDS ORDERED: Lidocaine -MPF 2% 2 ML VIAL ONE (06:02)
[2019-09-20] MEDS ORDERED: Ondansetron 4 MG/2 ML VIAL ONE (06:02)
[2019-09-20] MEDS ORDERED: Lidocaine -MPF 4% 5 ML AMPUL ONE (06:02)
[2019-09-20] MEDS ORDERED: *HR* Propofol 200 MG/20 ML VIAL IVP ONE (06:02)
[2019-09-20] MEDS ORDERED: *HR* Vasopressin 20 UNIT/ML VIAL ONE (06:48)
[2019-09-20] MEDS ORDERED: *HR* PHENYLEPHRINE 1,000 MCG/10 ML SYRINGE IVP ONE (07:26)
[2019-09-20] MEDS: Budesonide/Formoterol 160/4.5 1 PUFF INH IH SCH (07:28)
[2019-09-20] MEDS: Cyanocobalamin (B-12) 1,000 MCG TABLET PO SCH (07:39)
[2019-09-20] MEDS: Fenofibrate 54 MG TABLET PO SCH (07:39)
[2019-09-20] MEDS: Aspirin Enteric Coated 81 MG Tablet PO SCH (07:39)
[2019-09-20] MEDS ORDERED: Acetaminophen IV 1,000 MG/100 ML INFUS..BTL IVPB ONE (09:09)
[2019-09-20 10:51] LABS: Basophils % 0.5 %; Eosinophils # 0.3 K/mcL (0.0-0.6); Eosinophils % 3.6 %; Hematocrit 37.6 % (37.5-50.1); Hemoglobin 12.2 g/dL (12.9-16.9); Immature Granulocytes % 0.5 % (0-4); Lymphocytes # 1.2 K/mcL (0.6-4.6); Lymphocytes % 13.7 %; Mean Corpuscular HGB Conc 32.4 g/dL (31.6-35.5); Mean Corpuscular Hemoglobin 30.1 pg (28.0-33.3); Mean Corpuscular Volume 92.8 fL (83.0-100.0); Mean Platelet Volume 10.2 fL (9.4-12.4); Monocytes # 0.3 K/mcL (0.0-1.3); Monocytes % 3.8 %; Neutrophils # 6.9 K/mcL (1.6-8.9); Platelet Count 201 K/mcL (140-400); Red Blood Count 4.05 M/mcL (4.19-5.50); Red Cell Distribution Width 13.2 % (11.5-14.5); Segmented Neutrophils % 77.9 %; White Blood Count 8.8 K/mcL (4.3-11.1)
[2019-09-20] MEDS: levoFLOXacin 750 MG/150 ML 750 MG/150 ML BAG IVPB SCH (10:53)
[2019-09-20 10:59] VITALS: BP 129/78
[2019-09-20 11:16] LABS: BUN/Creatinine Ratio 17 (6-26); Blood Urea Nitrogen 23 mg/dL (8-23); Calcium 9.7 mg/dL (8.6-10.3); Carbon Dioxide 25 mEq/L (23-29); Chloride 106 mEq/L (98-107); Glucose 112 mg/dL (70-105); Osmolality,Calculated 294 (280-300); Potassium 4.5 mEq/L (3.5-5.1); Sodium 140 mEq/L (136-145); eGFR For African Americans > 60 (> 60); eGFR For Non-African Americans 50 (> 60)
[2019-09-20 11:45] LABS: Source of Body Fluid RLL BAL
[2019-09-20 12:48] LABS: Appearance of Body Fluid Slightly Hazy (Clear); Volume of Body Fluid 26 mL
== END 2019-09-20 15:23 | disposition home or self-care (01) | DRG 193 ==
LOC: 3BNU 15:35 → EMEROOARM 15:35 → SUATTDRO 20:00 → 3BNU 20:09
PROVIDERS: ADMIT Internal Medicine; ATTEND Internal Medicine
PROC: ENDOLBX (2019-09-20 07:45)